=== PATIENT | male | born 1980 | race Caucasian/White ===

== ENCOUNTER → 2018-03-10 09:00 | Outpatient (CLI) | payer OTHER, SELFPAY | PROVIDERS: Family Provider Family Medicine; PCP Family Medicine | DX: Z23 Encounter for immunization (principal) | CPT/HCPCS: 90471; 90686 ==

== ENCOUNTER → 2019-04-06 15:44 | Outpatient (CLI) | payer OTHER, SELFPAY | PROVIDERS: PCP Family Medicine | DX: Z23 Encounter for immunization (principal) | CPT/HCPCS: 90471; 90686 ==

== ENCOUNTER 2019-05-22 02:54 | Inpatient (IN) | payer OTHER, SELFPAY ==
[2019-05-22] VITALS (19 sets, daily range): BP systolic 115–148; BP diastolic 54–101; PULSE 69–108; RESP 11–18; TEMP 36.4–37.1; O2SAT 95–100; BMI 24.3
--- NOTE | 2019-05-22 | PATH_ITS ---
[facility] Accession Number: [id number] . 01 Material submitted: . colon - CECUM . 01 Clinical history: . STOMACH PAIN . 02 Diagnosis: Cecum, Resection: Acute appendicitis with serositis. Short segment of terminal ileum with lymphoid hyperplasia. Segment of cecum with serositis; please see comment. Three benign lymph nodes. No evidence of neoplasm. [facility] 05/29/2019 1658 Local . 02 Comment: The overall findings are compatible with the clinical/operative impression of volvulus. The findings in this case were discussed between Dr. Baptiste and Dr. Dupree on 05/29/2019 at 3:20 p.m. . As part of routine quality assurance coordinator, Dr. Baca has reviewed this case and agrees with the interpretation above. . 02 Electronically signed: . Mitesh Dupree MD, PhD, Pathologist NPI- [id number] . 01 Gross description: . Received in formalin, labeled cecum, is a segment of colon which includes the terminal ileum (length-2.9 cm, proximal diameter-2.3 cm), ileocecal valve, cecum and ascending colon (length-15.5 cm, distal diameter-5.0 cm) with attached appendix (length-7.5 cm, diameter-7.7 cm) and attached adipose tissue (up to 5.0 cm in depth). The resection margins are received stapled. The serosa is milton, smooth and shiny. The terminal ileum mucosa is milton, focally firm and bosselated. The cecal mucosa is milton, smooth and predominantly flat. The wall is thin and semi-translucent. The remaining mucosa is milton with normal folds. The appendix is unremarkable. No nodules, masses or lesions are identified. Multiple possible lymph nodes (0.1 cm-0.3 cm) are identified. The resection margins are inked black. Section code: (A1, A2) proximal resection margin, longitudinal resources representative; (A3) distal resection margin, longitudinal resources representative; (A4) appendix, resources representative; (A5-A7) resources representative serial sections beginning from the cecum and submitted proximal to distal; (A8) multiple intact lymph nodes; (A9) ileocecal valve, resources representative perpendicular sections. ([id number]) /MRV 05/24/2019 1146 Local . 02 Pathologist provided ICD-10: K56.2, K35.80 . 02 CPT . 129162 Performed at: 01 [facility] [address] [facility], [place], [place] [id number] MD Michael Noguera MD Phone: [phone] Performed at: 02 [facility] [address] [place], [place] [id number] MD Mckenna Baca MD Phone: [phone]
--- NOTE | 2019-05-22 02:58 | DI.CT.S_ITS ---
PROCEDURE: CT ABDOMEN PELVIS W CON INDICATIONS: abdominal pain, Nausea, vomiting TECHNIQUE: After the administration of intravenous contrast, 5 mm thick sections acquired from the diaphragm to the symphysis. 5 mm coronal and sagittal reformats were acquired. For radiation dose reduction, the following was used: automated exposure control, adjustment of mA and/or kV according to patient size. COMPARISON: None. FINDINGS: Image quality: Excellent. ABDOMEN: Lung bases: Lung bases are clear. Heart size is normal. Solid organs: Liver is normal in size and enhancement. Gallbladder is normal. Biliary system is non dilated. Pancreas enhances normally. Spleen is normal in size and enhancement. No adrenal nodules. Kidneys demonstrate normal size and enhancement, without hydronephrosis. Peritoneum and bowel: There is congenital variant anatomy of bowel orientation/malrotation with the small bowel noted predominantly within the right abdomen and the colon within the left side. A prominent, enlarged cecum is noted predominantly in the mid and upper midline abdomen, containing a large amount of fecal material. The ileocecal valve and distal ileum appear decompressed as well as the adjacent loop of ascending colon. The distal colon is decompressed. No significant bowel wall thickening or edema. There is fecalization of the distal ileum which is consistent with delayed transit. Remaining small bowel loops demonstrate normal wall thickness and caliber. No free fluid or air. Visualized appendix appears within normal limits. Nodes and vessels: No retroperitoneal or mesenteric adenopathy by size criteria. Aorta and inferior vena cava are normal in size. Miscellaneous: No ventral hernias. PELVIS: Genitourinary: Bladder wall thickness is normal. Miscellaneous: No inguinal hernias or adenopathy. Bones: No suspicious bony lesions. No vertebral body compression fractures. 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 There is no associated wall thickening or significant edema. The terminal ileum and adjacent ascending colon appear decompressed with minimal wall thickening that may be related to decompressed state. The remaining colon appear decompressed. There is fecalization of the distal small bowel likely related to delayed transit. No evidence for small bowel obstruction. Findings may be related to a cecal bascule without lilli volvulus. No twisting of the mesenteric vessels identified. Early proximal large bowel obstruction with transition point near the proximal ascending colon is not completely excluded. Surgical consultation was already obtained as preliminary findings were discussed with Dr. Baptiste by the overnight radiologist at 0354 hours. No significant discrepancy with the warehouse worker 2nd shift radiology preliminary report. Dictated by: Cristian Lawson M.D. on 05/22/2019 at 9:21 Approved by: Cristian Lawson M.D. on 05/22/2019 at 10:24
[2019-05-22 03:13] LABS: Add Manual Diff / Slide Review NO; Basophils Absolute Auto 0 /uL (0-100); Basophils Percent Auto 0.3 % (0-2); Eosinophils Absolute Auto 100 /uL (0-450); Eosinophils Percent Auto 0.6 % (2-4); Hematocrit 45.1 % (41-53); Hemoglobin 15.6 g/dL (13.5-17.5); Lymphocytes Absolute Auto 2500 /uL (1100-4500); Lymphocytes Percent Auto 19.8 % (25-40); Mean Corpuscular HGB Conc 34.5 % (30-36); Mean Corpuscular Hemoglobin 29.6 PG (26-34); Mean Corpuscular Volume 85.8 fL (80-100); Monocytes Absolute Auto 600 /uL (0-900); Monocytes Percent Auto 5.1 % (3-14); Neutrophils Absolute Auto 9400 /uL (1500-7000); Neutrophils Percent Auto 74.2 % (50-75); Platelet Count 287 X10^3/uL (150-400); Red Blood Cell Count 5.26 X10^6/uL (4.5-5.9); Red Cell Distribution Width 13.1 % (11.6-14.8); White Blood Cell Count 12.7 X10^3/uL (4.5-11.0)
[2019-05-22 03:22] LABS: Alanine Aminotransferase 19 IU/L (<50); Albumin 5.1 g/dL (3.5-5.0); Albumin Globulin Ratio 1.5 (1.0-2.8); Alkaline Phosphatase 66 U/L (38-126); Aspartate Aminotransferase 26 IU/L (17-59); BUN Creatinine Ratio 11.1 (6-22); Bilirubin Total 0.9 mg/dL (0.2-1.3); Blood Urea Nitrogen 10 mg/dL (9-20); Calcium 10.2 mg/dL (8.4-10.2); Carbon Dioxide 30 mmol/L (22-32); Chloride 101 mmol/L (98-107); Estimated Glomerular Filt Rate > 60.0 mL/min (>60); Globulin 3.3 g/dL (1.7-4.1); Glucose 103 mg/dL (70-100); HEMOLYSIS < 15 (0-50); Lactate (Lactic Acid) 0.8 mmol/L (0.7-2.1); Lipase 37 U/L (23-300); Sodium 141 mmol/L (137-145); Total Protein 8.4 g/dL (6.3-8.2)
[2019-05-22] MEDS: DEXTROSE 5%-LACTATED RINGERS 1,000 ML 150 ML IV ×3 (03:37→22:31)
--- NOTE | 2019-05-22 04:03 | P.HP_ITS ---
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 He has been vomiting much of the night. No blood. Had a normal bowel movement yesterday. Had symptoms of a bowel obstruction when he was a youngster that resolved spontaneously. Pain is crampy in nature and quite intense to the point of stopping him. Is worse with standing. 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) Right humeral fracture (Resolved) Umbilical hernia without mention of obstruction or gangrene (Resolved) Surgical History (Updated 05/22/19 @ 04:06 by Martínez Baptiste MD) H/O umbilical hernia repair (Acute) Family & Social History Safety & Behavioral: Feels Safe in Current Yes Environment Tobacco & Substance use: Smoking Status Never smoker alcohol intake current alcohol intake frequency 0-2 drinks per day Substance Use Type does not use Meds Home Medications and Allergies Home Medications Medication Instructions Recorded Confirmed Type dextroamphetamine-amphetamine ER 30 cap PO QDAY #30 cap 04/09/19 04/27/19 Rx 30 mg 24hr capsule,extend release Allergies Allergy/AdvReac Type Severity Reaction Status Date / Time No Known Allergies Allergy Uncoded 04/27/19 15:03 Review of Systems Review of Systems Narrative: No breathing issues cough or cold. No chest pain or heart problems. No black or bloody bowel movements. No seizures or blackouts. He is treated with Adderall for adult attention deficit disorder. Exam Vital Signs (past 8 hours): - 05/22/19 03:05 Temperature 98.5 F Pulse Rate 92 H Respiratory Rate 16 Blood Pressure 138/101 H Pulse Oximetry 97 Oxygen Delivery Method Room Air Narrative Exam Narrative: Under signs noted. Cooperative. Eyes are nonicteric. Oral mucosa is pink moist no open lesions. Teeth are intact. Neck is without mass or nodes. Lungs are clear to auscultation no rales or rhonchi. Heart regular r ate and rhythm without murmur gallop. Abdomen is flat and soft. There is localized tenderness in the left upper abdomen. Voluntary guarding. No hernias appreciated. Patient is alert oriented x3. Speech rate and content are appropriate. Affect is appropriate. Objective Imaging CT scan - abdomen: My impression: Normal caliber small bowel and colon except for in absence of gas in the right abdomen and the cecum appears to be located in the left upper abdomen with marked distention and stool consistent with a bowel obstruction most likely secondary to volvulus of the cecum. No free air. Remainder the abdomen fairly unremarkable. Despite the administration of IV contrast there does not seem to be much perfused. Radiologist's impression: Same as above Labs Result Diagrams: 05/22/19 03:00 05/22/19 03:00 Labs: Laboratory Results - last 24 hr 05/22/19 05/22/19 05/22/19 03:00 03:00 03:00 WBC 12.7 H RBC 5.26 Hgb 15.6 Hct 45.1 MCV 85.8 MCH 29.6 MCHC 34.5 RDW 13.1 Plt Count 287 Neut % (Auto) 74.2 Lymph % (Auto) 19.8 L [place] % (Auto) 5.1 Eos % (Auto) 0.6 L Baso % (Auto) 0.3 Neut # (Auto) 9400 H Lymph # (Auto) 2500 [place] # (Auto) 600 Eos # (Auto) 100 Baso # (Auto) 0 Sodium 141 Potassium 4.0 Chloride 101 Carbon Dioxide 30 BUN 10 Creatinine 0.90 Estimated GFR > 60.0 BUN/Creatinine Ratio 11.1 Glucose 103 H Lactate 0.8 Calcium 10.2 Total Bilirubin 0.9 AST 26 ALT 19 Alkaline Phosphatase 66 Total Protein 8.4 H Albumin 5.1 H Globulin 3.3 Albumin/Globulin Ratio 1.5 Lipase 37 Assessment & Plan Assessment & Plan narrative: Patient with cecal volvulus. Recommend exploration resection. I have discussed this with the patient including risks of bleeding, infection, anastomotic breakdown in hernia. He appears to understand and wishes to proceed. Possibility of an ileostomy discussed with him as well.
--- NOTE | 2019-05-22 04:04 | ED_ITS ---
HPI - Abdominal Pain <[facility] Last Filed: 05/22/19 05:10> General Chief Complaint: Abdominal Pain Stated Complaint: stomach pain Time Seen by Provider: 05/22/19 02:56 Source: patient Mode of arrival: Ambulatory Limitations: no limitations History of Present Illness HPI narrative: This is a 38-year-old ,nonsmoker, male with chief complain of left upper quadrant pain for last 10 hours with associated symptoms of nausea and vomiting x2. Patient has history of umbilical hernia repair. Had similar symptoms when he was 8 or 9 and was admitted to hospital. Pain worsens with standing up and ambulation. Reports increasing pain with light touch. Last bowel movement as usual yesterday without blood. Reports current pain as 2/10 at rest but at times pain increases as severe. Denies urinary symptoms. Related Data Previous Rx's Medication Instructions Recorded dextroamphetamine-amphetamine ER 30 cap PO QDAY #30 cap 04/09/19 30 mg 24hr capsule,extend release ibuprofen 600 mg PO Q6H PRN #20 tab 05/25/19 oxycodone See Rx Instructions .ROUTE 05/25/19 .COMPLEX PRN #25 tab Allergies Allergy/AdvReac Type Severity Reaction Status Date / Time No Known Allergies Allergy Verified 05/22/19 04:35 Review of Systems <LEILA Murray Last Filed: 05/22/19 05:10> Review of Systems Narrative: General: Denies fever, chills, fatigue, malaise, sweats. HEENT: Denies sinus pain, ear pain, sore throat, difficulty swallowing, dizziness. Respiratory: Denies dyspnea, cough, wheezing, hemoptysis, sputum. Cardiovascular: Denies chest pain, palpitations, orthopnea, edema. Gastrointestinal: See HPI : Denies dysuria, frequency, incontinence, hematuria, urinary retention. Musculoskeletal: Denies weakness, joint pain or bony pain. Skin: Denies rash, skin lesions, or other. Neurologic: Denies weakness, headache, numbness, change in speech, confusion, seizures, incoordination. Psychiatric: No concerning psychosocial issues. 12-point review of systems is negative except for those stated above. 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 Head: Normal cephalic, atraumatic. No scalp or temporal tenderness, palpable mass or rash. EYES: Pupils are equal, round, and reactive to light and accommodation. Extraocular muscles are intact bilaterally. There is no subconjunctival hemorrhage, exudate and sclera non-icteric. Neck: Trachea in midline. No JVD, masses or thyroid megaly. Supple, non- tender and no meningeal signs. CARDIAC: No peripheral edema, cyanosis or pallor. Capillary refill is less than 2 seconds. RESPIRATORY: No cough, wheezes, stridor, respiratory distress, increase work of breathing, or accessary muscle used. ABD: Abdomen tender to light palpation in LUQ and hypoactive bowel sounds and non-distended. No guarding or rebound tenderness to palpate. There is no palpable masses or organomegaly. EXT: Full painless ROM of all extremities with no loss of sensation, strength, effusion or edema. SKIN: Warm, dry, normal color for patient. No erythema, lesions or rash over visible areas. BACK: Nontender without deformity or crepitance. No flank tenderness. NEUROLOGICAL: Alert and oriented to place, time and person. Sensation and motor function intact bilaterally. No facial droops, dysphasia. PSYCHIATRIC: Good judgement and reason, without hallucinations, abnormal affect or abnormal behaviors during the examination. Patient is not suicidal. Initial Vital Signs Initial Vital Signs: Vital Signs Temperature 98.5 F 05/22/19 03:05 Pulse Rate 92 H 05/22/19 03:05 Respiratory Rate 16 05/22/19 03:05 Blood Pressure 138/101 H 05/22/19 03:05 Pulse Oximetry 97 05/22/19 03:05 <Francisco Goodwin DO - Last Filed: 05/26/19 11:46> Initial Vital Signs Initial Vital Signs: Vital Signs Temperature 98.5 F 05/22/19 03:05 Pulse Rate 92 H 05/22/19 03:05 Respiratory Rate 16 05/22/19 03:05 Blood Pressure 138/101 H 05/22/19 03:05 Pulse Oximetry 97 05/22/19 03:05 Course <LEILA Murray - Last Filed: 05/22/19 05:10> Course Course Narrative: Critical findings of large bowel obstruction in cecum w/o obstruction from Radiologist. Dr. Baptiste discussing with the radiologist about the findings. Decision to Admit Date: 05/22/19 Decision to Admit time: 03:50 Orders Ordered: Acetaminophen (Tylenol) 650 mg PO Q6HR PRN PRN Reason: Fever/Mild Pain (1-3) Last Admin: 05/25/19 09:02 Dose: 650 mg Documented by: Admin: 05/23/19 16:27 Dose: 650 mg Documented by: MARY Enoxaparin Sodium (Lovenox) 40 mg SUBCUT DAILY [facility] Last Admin: 05/26/19 09:23 Dose: Not Given Documented by: Admin: 05/25/19 14:07 Dose: 40 mg Documented by: Admin: 05/24/19 13:09 Dose: 40 mg Documented by: Admin: 05/23/19 09:57 Dose: 40 mg Documented by: Admin: 05/22/19 14:44 Dose: Not Given Documented by: DHAVAL Gabapentin (Neurontin) 300 mg PO BID [facility] Last Admin: 05/26/19 08:06 Dose: 300 mg Documented by: Admin: 05/25/19 21:23 Dose: 300 mg Documented by: Admin: 05/25/19 09:02 Dose: 300 mg Documented by: Admin: 05/24/19 21:10 Dose: 300 mg Documented by: Admin: 05/24/19 10:13 Dose: 300 mg Documented by: Admin: 05/23/19 20:58 Dose: 300 mg Documented by: Admin: 05/23/19 09:58 Dose: 300 mg Documented by: Admin: 05/22/19 21:57 Dose: 300 mg Documented by: Admin: 05/22/19 10:22 Dose: 300 mg Documented by: DHAVAL Ketorolac Tromethamine (Toradol) 10 mg PO Q6HR [facility] Stop: 05/30/19 12:52 Last Admin: 05/26/19 06:18 Dose: 10 mg Documented by: Admin: 05/26/19 01:05 Dose: Not Given Documented by: Admin: 05/25/19 17:30 Dose: 10 mg Documented by: MARY Naloxone HCl (Narcan) 0.2 mg IV Q2MIN PRN PRN Reason: Opiate Reversal Melatonin 5mg Fast (Dissolve) 5 each PO BEDTIME [facility] Last Admin: 05/25/19 21:23 Dose: 5 each Documented by: Admin: 05/24/19 21:10 Dose: 5 each Documented by: Admin: 05/23/19 20:57 Dose: 5 each Documented by: Admin: 05/22/19 19:07 Dose: 5 each Documented by: JONNA Dextroamphetamine Salts (Adderall) Er 30mg 1 each PO DAILY [facility] Last Admin: 05/26/19 09:23 Dose: Not Given Documented by: Admin: 05/25/19 10:13 Dose: Not Given Documented by: Admin: 05/24/19 13:19 Dose: 1 each Documented by: RUBÉN Ondansetron HCl (Zofran) 4 mg IV Q6HR PRN PRN Reason: Nausea And Vomiting Last Admin: 05/25/19 09:01 Dose: 4 mg Documented by: Admin: 05/24/19 10:23 Dose: 4 mg Documented by: Admin: 05/24/19 03:43 Dose: 4 mg Documented by: Admin: 05/22/19 17:36 Dose: 4 mg Documented by: JONNA Oxycodone HCl (Percolone) 10 mg PO Q4HR PRN PRN Reason: Pain, Moderate (4-6) Last Admin: 05/26/19 08:06 Dose: 10 mg Documented by: Admin: 05/24/19 21:11 Dose: 10 mg Documented by: MARY Oxycodone HCl (Percolone) 15 mg PO Q4HR PRN PRN Reason: Pain, Severe (7-10) Last Admin: 05/25/19 22:23 Dose: 15 mg Documented by: Admin: 05/25/19 17:59 Dose: 15 mg Documented by: Admin: 05/25/19 14:06 Dose: 15 mg Documented by: Admin: 05/25/19 10:03 Dose: 15 mg Documented by: Admin: 05/25/19 05:18 Dose: 15 mg Documented by: ROSE Pantoprazole Sodium (Protonix) 40 mg PO 0700 [facility] Last Admin: 05/26/19 06:18 Dose: 40 mg Documented by: Admin: 05/25/19 09:02 Dose: 40 mg Documented by: RUBÉN Discontinued Medications Acetaminophen (Tylenol) 650 mg PO NOW ONE Stop: 05/24/19 11:44 Last Admin: 05/24/19 13:11 Dose: 650 mg Documented by: RUBÉN Bisacodyl (Dulcolax) 10 mg [place] NOW ONE Stop: 05/24/19 09:52 Last Admin: 05/24/19 10:13 Dose: 10 mg Documented by: RUBÉN Bisacodyl (Dulcolax) 10 mg WI NOW ONE Stop: 05/25/19 12:52 Last Admin: 05/25/19 14:06 Dose: 10 mg Documented by: RUBÉN Bisacodyl (Dulcolax) 10 mg WI NOW ONE Stop: 05/26/19 08:59 Last Admin: 05/26/19 09:21 Dose: 10 mg Documented by: DHAVAL Hydromorphone HCl (Dilaudid) 0 mg IV Q5M PRN PRN Reason: Pain, Severe (7-10) Hydromorphone HCl (Dilaudid) 0 mg IV Q5M PRN PRN Reason: Pain, Moderate (4-6) Last Admin: 05/22/19 08:57 Dose: 0.5 mg Documented by: AUGUSTUS Hydromorphone HCl (Dilaudid) 0 mg IV Q5MIN PRN PRN Reason: Pain, Mild (1-3) Hydromorphone HCl (Dilaudid) 0.5 mg IV Q30MIN PRN PRN Reason: Pain, Severe (7-10) Last Admin: 05/24/19 03:39 Dose: 0.5 mg Documented by: Admin: 05/24/19 03:11 Dose: 0.5 mg Documented by: Admin: 05/24/19 02:06 Dose: 0.5 mg Documented by: Admin: 05/23/19 20:59 Dose: 0.5 mg Documented by: Admin: 05/22/19 16:55 Dose: 0.5 mg Documented by: Admin: 05/22/19 15:36 Dose: 0.5 mg Documented by: Admin: 05/22/19 13:23 Dose: 0.5 mg Documented by: DHAVAL Hydroxyzine HCl (Vistaril) 25 mg IM NOW PRN PRN Reason: Pain, Mild (1-3) Sodium Chloride (Normal Saline 0.9%) 1,000 mls @ 1,000 mls/hr IV BOLUS ONE Stop: 05/22/19 03:55 Last Admin: 05/22/19 05:08 Dose: Not Given Documented by: JAYNA Lactated Ringer's (Lactated Ringers) 1,000 mls @ 1,000 mls/hr IV BOLUS ONE Stop: 05/22/19 04:32 Last Infusion: 05/22/19 09:21 Dose: 0 mls/hr Documented by: Admin: 05/22/19 06:27 Dose: 1,000 mls/hr Documented by: Admin: 05/22/19 05:08 Dose: Not Given Documented by: JAYNA Dextrose/Lactated Ringer's (Dextrose 5%-Lactated Ringers) 1,000 mls @ 80 mls/hr IV CONT [facility] Last Infusion: 05/25/19 09:00 Dose: 0 mls/hr Documented by: Admin: 05/25/19 01:43 Dose: 80 mls/hr Documented by: Infusion: 05/25/19 01:41 Dose: 80 mls/hr Documented by: Admin: 05/24/19 13:11 Dose: 80 mls/hr Documented by: Infusion: 05/24/19 13:11 Dose: 80 mls/hr Documented by: Admin: 05/24/19 00:55 Dose: 80 mls/hr Documented by: Infusion: 05/24/19 00:55 Dose: 80 mls/hr Documented by: Infusion: 05/23/19 12:58 Dose: 80 mls/hr Documented by: Admin: 05/23/19 12:40 Dose: 150 mls/hr Documented by: Infusion: 05/23/19 11:59 Dose: 150 mls/hr Documented by: Admin: 05/23/19 05:18 Dose: 150 mls/hr Documented by: Infusion: 05/23/19 05:12 Dose: 150 mls/hr Documented by: Admin: 05/22/19 22:31 Dose: 150 mls/hr Documented by: Infusion: 05/22/19 22:31 Dose: 150 mls/hr Documented by: Admin: 05/22/19 16:41 Dose: 150 mls/hr Documented by: Infusion: 05/22/19 10:17 Dose: 150 mls/hr Documented by: Infusion: 05/22/19 05:09 Dose: 150 mls/hr Documented by: Admin: 05/22/19 03:37 Dose: 150 mls/hr Documented by: JAYNA Piperacillin/Tazobactam/Dextrose (Zosyn) 3.375 gm in 50 mls @ 100 mls/hr IV INTRA-OP ONE Stop: 05/22/19 04:41 Last Infusion: 05/22/19 05:15 Dose: 0 mls/hr Documented by: Admin: 05/22/19 05:10 Dose: 100 mls/hr Documented by: ONDINA FENT 2MCG/ML BUPIV 0.125% EPI (Fentanyl/Bupiv/Ns 2mcg/Ml - 0.125%) 200 mcg in 100 mls @ 5 mls/hr EPIDURAL CONT [facility] Last Infusion: 05/22/19 10:22 Dose: 0 mls/hr Documented by: Infusion: 05/22/19 10:22 Dose: 10 mls/hr Documented by: Infusion: 05/22/19 09:46 Dose: 8 mls/hr Documented by: Admin: 05/22/19 08:41 Dose: 5 mls/hr Documented by: AKUNZE Acetaminophen (Ofirmev) 1,000 mg in 100 mls @ 400 mls/hr IV NOW ONE Stop: 05/22/19 06:30 Last Infusion: 05/22/19 06:19 Dose: 0 mls/hr Documented by: Admin: 05/22/19 06:09 Dose: 400 mls/hr Documented by: CARROBE FENT 2MCG/ML BUPIV 0.125% EPI (Fentanyl/Bupiv/Ns 2mcg/Ml - 0.125%) 200 mcg in 100 mls @ 10 mls/hr EPIDURAL CONT [facility] Last Infusion: 05/25/19 06:00 Dose: 0 mls/hr Documented by: Admin: 05/24/19 20:04 Dose: 10 mls/hr Documented by: Infusion: 05/24/19 10:58 Dose: 10 mls/hr Documented by: Admin: 05/24/19 00:58 Dose: 10 mls/hr Documented by: Infusion: 05/24/19 00:58 Dose: 10 mls/hr Documented by: Admin: 05/23/19 16:41 Dose: 10 mls/hr Documented by: Infusion: 05/23/19 15:57 Dose: 10 mls/hr Documented by: Admin: 05/23/19 05:57 Dose: 10 mls/hr Documented by: Infusion: 05/23/19 05:24 Dose: 10 mls/hr Documented by: Infusion: 05/22/19 23:17 Dose: 10 mls/hr Documented by: Infusion: 05/22/19 22:50 Dose: 8 mls/hr Documented by: Infusion: 05/22/19 17:30 Dose: 5 mls/hr Documented by: Admin: 05/22/19 16:38 Dose: 10 mls/hr Documented by: Infusion: 05/22/19 16:38 Dose: 10 mls/hr Documented by: Admin: 05/22/19 10:21 Dose: 10 mls/hr Documented by: DHAVAL Meperidine HCl (Demerol) 12.5 mg IV NOW PRN PRN Reason: Mild pain or shivering Pantoprazole Sodium (Protonix) 40 mg IV NOW ONE Stop: 05/22/19 17:51 Last Admin: 05/22/19 18:03 Dose: 40 mg Documented by: JONNA Pantoprazole Sodium (Protonix) 40 mg IV DAILY [facility] Last Admin: 05/24/19 10:13 Dose: 40 mg Documented by: Admin: 05/23/19 09:58 Dose: 40 mg Documented by: DHAVAL Sodium Chloride (Normal Saline 0.9% Flush) 10 ml IV PRN PRN PRN Reason: Flush Sodium Chloride (Normal Saline 0.9% Flush) 10 ml IV BID [facility] Last Admin: 05/26/19 10:07 Dose: Not Given Documented by: Admin: 05/25/19 21:22 Dose: Not Given Documented by: Admin: 05/25/19 09:00 Dose: 10 ml Documented by: Admin: 05/24/19 21:12 Dose: Not Given Documented by: Admin: 05/24/19 10:13 Dose: 10 ml Documented by: Admin: 05/23/19 20:55 Dose: Not Given Documented by: Admin: 05/23/19 09:57 Dose: 10 ml Documented by: DHAVAL Vital Signs Vital signs: Vital Signs - 8 hr 05/22/19 03:05 Temperature 98.5 F Pulse Rate 92 H Respiratory Rate 16 Blood Pressure 138/101 H Pulse Oximetry 97 <Francisco Goodwin, - Last Filed: 05/26/19 11:46> Orders Ordered: Acetaminophen (Tylenol) 650 mg PO Q6HR PRN PRN Reason: Fever/Mild Pain (1-3) Last Admin: 05/25/19 09:02 Dose: 650 mg Documented by: Admin: 05/23/19 16:27 Dose: 650 mg Documented by: MARY Enoxaparin Sodium (Lovenox) 40 mg SUBCUT DAILY [facility] Last Admin: 05/26/19 09:23 Dose: Not Given Documented by: Admin: 05/25/19 14:07 Dose: 40 mg Documented by: Admin: 05/24/19 13:09 Dose: 40 mg Documented by: Admin: 05/23/19 09:57 Dose: 40 mg Documented by: Admin: 05/22/19 14:44 Dose: Not Given Documented by: DHAVAL Gabapentin (Neurontin) 300 mg PO BID [facility] Last Admin: 05/26/19 08:06 Dose: 300 mg Documented by: Admin: 05/25/19 21:23 Dose: 300 mg Documented by: Admin: 05/25/19 09:02 Dose: 300 mg Documented by: Admin: 05/24/19 21:10 Dose: 300 mg Documented by: Admin: 05/24/19 10:13 Dose: 300 mg Documented by: Admin: 05/23/19 20:58 Dose: 300 mg Documented by: Admin: 05/23/19 09:58 Dose: 300 mg Documented by: Admin: 05/22/19 21:57 Dose: 300 mg Documented by: Admin: 05/22/19 10:22 Dose: 300 mg Documented by: DHAVAL Ketorolac Tromethamine (Toradol) 10 mg PO Q6HR [facility] Stop: 05/30/19 12:52 Last Admin: 05/26/19 06:18 Dose: 10 mg Documented by: Admin: 05/26/19 01:05 Dose: Not Given Documented by: Admin: 05/25/19 17:30 Dose: 10 mg Documented by: MARY Naloxone HCl (Narcan) 0.2 mg IV Q2MIN PRN PRN Reason: Opiate Reversal Melatonin 5mg Fast (Dissolve) 5 each PO BEDTIME [facility] Last Admin: 05/25/19 21:23 Dose: 5 each Documented by: Admin: 05/24/19 21:10 Dose: 5 each Documented by: Admin: 05/23/19 20:57 Dose: 5 each Documented by: Admin: 05/22/19 19:07 Dose: 5 each Documented by: JONNA Dextroamphetamine Salts (Adderall) Er 30mg 1 each PO DAILY [facility] Last Admin: 05/26/19 09:23 Dose: Not Given Documented by: Admin: 05/25/19 10:13 Dose: Not Given Documented by: Admin: 05/24/19 13:19 Dose: 1 each Documented by: RUBÉN Ondansetron HCl (Zofran) 4 mg IV Q6HR PRN PRN Reason: Nausea And Vomiting Last Admin: 05/25/19 09:01 Dose: 4 mg Documented by: Admin: 05/24/19 10:23 Dose: 4 mg Documented by: Admin: 05/24/19 03:43 Dose: 4 mg Documented by: Admin: 05/22/19 17:36 Dose: 4 mg Documented by: JONNA Oxycodone HCl (Percolone) 10 mg PO Q4HR PRN PRN Reason: Pain, Moderate (4-6) Last Admin: 05/26/19 08:06 Dose: 10 mg Documented by: Admin: 05/24/19 21:11 Dose: 10 mg Documented by: MARY Oxycodone HCl (Percolone) 15 mg PO Q4HR PRN PRN Reason: Pain, Severe (7-10) Last Admin: 05/25/19 22:23 Dose: 15 mg Documented by: Admin: 05/25/19 17:59 Dose: 15 mg Documented by: Admin: 05/25/19 14:06 Dose: 15 mg Documented by: Admin: 05/25/19 10:03 Dose: 15 mg Documented by: Admin: 05/25/19 05:18 Dose: 15 mg Documented by: ROSE Pantoprazole Sodium (Protonix) 40 mg PO 0700 [facility] Last Admin: 05/26/19 06:18 Dose: 40 mg Documented by: Admin: 05/25/19 09:02 Dose: 40 mg Documented by: RUBÉN Discontinued Medications Acetaminophen (Tylenol) 650 mg PO NOW ONE Stop: 05/24/19 11:44 Last Admin: 05/24/19 13:11 Dose: 650 mg Documented by: RUBÉN Bisacodyl (Dulcolax) 10 mg WI NOW ONE Stop: 05/24/19 09:52 Last Admin: 05/24/19 10:13 Dose: 10 mg Documented by: RUBÉN Bisacodyl (Dulcolax) 10 mg WI NOW ONE Stop: 05/25/19 12:52 Last Admin: 05/25/19 14:06 Dose: 10 mg Documented by: RUBÉN Bisacodyl (Dulcolax) 10 mg WI NOW ONE Stop: 05/26/19 08:59 Last Admin: 05/26/19 09:21 Dose: 10 mg Documented by: DAHVAL Hydromorphone HCl (Dilaudid) 0 mg IV Q5M PRN PRN Reason: Pain, Severe (7-10) Hydromorphone HCl (Dilaudid) 0 mg IV Q5M PRN PRN Reason: Pain, Moderate (4-6) Last Admin: 05/22/19 08:57 Dose: 0.5 mg Documented by: LESLIEUNBRITANY Hydromorphone HCl (Dilaudid) 0 mg IV Q5MIN PRN PRN Reason: Pain, Mild (1-3) Hydromorphone HCl (Dilaudid) 0.5 mg IV Q30MIN PRN PRN Reason: Pain, Severe (7-10) Last Admin: 05/24/19 03:39 Dose: 0.5 mg Documented by: Admin: 05/24/19 03:11 Dose: 0.5 mg Documented by: Admin: 05/24/19 02:06 Dose: 0.5 mg Documented by: Admin: 05/23/19 20:59 Dose: 0.5 mg Documented by: Admin: 05/22/19 16:55 Dose: 0.5 mg Documented by: Admin: 05/22/19 15:36 Dose: 0.5 mg Documented by: Admin: 05/22/19 13:23 Dose: 0.5 mg Documented by: DHAVAL Hydroxyzine HCl (Vistaril) 25 mg IM NOW PRN PRN Reason: Pain, Mild (1-3) Sodium Chloride (Normal Saline 0.9%) 1,000 mls @ 1,000 mls/hr IV BOLUS ONE Stop: 05/22/19 03:55 Last Admin: 05/22/19 05:08 Dose: Not Given Documented by: KWOYSKI Lactated Ringer's (Lactated Ringers) 1,000 mls @ 1,000 mls/hr IV BOLUS ONE Stop: 05/22/19 04:32 Last Infusion: 05/22/19 09:21 Dose: 0 mls/hr Documented by: Admin: 05/22/19 06:27 Dose: 1,000 mls/hr Documented by: Admin: 05/22/19 05:08 Dose: Not Given Documented by: JAYNA Dextrose/Lactated Ringer's (Dextrose 5%-Lactated Ringers) 1,000 mls @ 80 mls/hr IV CONT [facility] Last Infusion: 05/25/19 09:00 Dose: 0 mls/hr Documented by: Admin: 05/25/19 01:43 Dose: 80 mls/hr Documented by: Infusion: 05/25/19 01:41 Dose: 80 mls/hr Documented by: Admin: 05/24/19 13:11 Dose: 80 mls/hr Documented by: Infusion: 05/24/19 13:11 Dose: 80 mls/hr Documented by: Admin: 05/24/19 00:55 Dose: 80 mls/hr Documented by: Infusion: 05/24/19 00:55 Dose: 80 mls/hr Documented by: Infusion: 05/23/19 12:58 Dose: 80 mls/hr Documented by: Admin: 05/23/19 12:40 Dose: 150 mls/hr Documented by: Infusion: 05/23/19 11:59 Dose: 150 mls/hr Documented by: Admin: 05/23/19 05:18 Dose: 150 mls/hr Documented by: Infusion: 05/23/19 05:12 Dose: 150 mls/hr Documented by: Admin: 05/22/19 22:31 Dose: 150 mls/hr Documented by: Infusion: 05/22/19 22:31 Dose: 150 mls/hr Documented by: Admin: 05/22/19 16:41 Dose: 150 mls/hr Documented by: Infusion: 05/22/19 10:17 Dose: 150 mls/hr Documented by: Infusion: 05/22/19 05:09 Dose: 150 mls/hr Documented by: Admin: 05/22/19 03:37 Dose: 150 mls/hr Documented by: JAYNA Piperacillin/Tazobactam/Dextrose (Zosyn) 3.375 gm in 50 mls @ 100 mls/hr IV INTRA-OP ONE Stop: 05/22/19 04:41 Last Infusion: 05/22/19 05:15 Dose: 0 mls/hr Documented by: Admin: 05/22/19 05:10 Dose: 100 mls/hr Documented by: ONDINA FENT 2MCG/ML BUPIV 0.125% EPI (Fentanyl/Bupiv/Ns 2mcg/Ml - 0.125%) 200 mcg in 100 mls @ 5 mls/hr EPIDURAL CONT [facility] Last Infusion: 05/22/19 10:22 Dose: 0 mls/hr Documented by: Infusion: 05/22/19 10:22 Dose: 10 mls/hr Documented by: Infusion: 05/22/19 09:46 Dose: 8 mls/hr Documented by: Admin: 05/22/19 08:41 Dose: 5 mls/hr Documented by: AKUNZE Acetaminophen (Ofirmev) 1,000 mg in 100 mls @ 400 mls/hr IV NOW ONE Stop: 05/22/19 06:30 Last Infusion: 05/22/19 06:19 Dose: 0 mls/hr Documented by: Admin: 05/22/19 06:09 Dose: 400 mls/hr Documented by: ONDINA FENT 2MCG/ML BUPIV 0.125% EPI (Fentanyl/Bupiv/Ns 2mcg/Ml - 0.125%) 200 mcg in 100 mls @ 10 mls/hr EPIDURAL CONT [facility] Last Infusion: 05/25/19 06:00 Dose: 0 mls/hr Documented by: Admin: 05/24/19 20:04 Dose: 10 mls/hr Documented by: Infusion: 05/24/19 10:58 Dose: 10 mls/hr Documented by: Admin: 05/24/19 00:58 Dose: 10 mls/hr Documented by: Infusion: 05/24/19 00:58 Dose: 10 mls/hr Documented by: Admin: 05/23/19 16:41 Dose: 10 mls/hr Documented by: Infusion: 05/23/19 15:57 Dose: 10 mls/hr Documented by: Admin: 05/23/19 05:57 Dose: 10 mls/hr Documented by: Infusion: 05/23/19 05:24 Dose: 10 mls/hr Documented by: Infusion: 05/22/19 23:17 Dose: 10 mls/hr Documented by: Infusion: 05/22/19 22:50 Dose: 8 mls/hr Documented by: Infusion: 05/22/19 17:30 Dose: 5 mls/hr Documented by: Admin: 05/22/19 16:38 Dose: 10 mls/hr Documented by: Infusion: 05/22/19 16:38 Dose: 10 mls/hr Documented by: Admin: 05/22/19 10:21 Dose: 10 mls/hr Documented by: DHAVAL Meperidine HCl (Demerol) 12.5 mg IV NOW PRN PRN Reason: Mild pain or shivering Pantoprazole Sodium (Protonix) 40 mg IV NOW ONE Stop: 05/22/19 17:51 Last Admin: 05/22/19 18:03 Dose: 40 mg Documented by: JONNA Pantoprazole Sodium (Protonix) 40 mg IV DAILY [facility] Last Admin: 05/24/19 10:13 Dose: 40 mg Documented by: Admin: 05/23/19 09:58 Dose: 40 mg Documented by: DHAVAL Sodium Chloride (Normal Saline 0.9% Flush) 10 ml IV PRN PRN PRN Reason: Flush Sodium Chloride (Normal Saline 0.9% Flush) 10 ml IV BID [facility] Last Admin: 05/26/19 10:07 Dose: Not Given Documented by: Admin: 05/25/19 21:22 Dose: Not Given Documented by: Admin: 05/25/19 09:00 Dose: 10 ml Documented by: Admin: 05/24/19 21:12 Dose: Not Given Documented by: Admin: 05/24/19 10:13 Dose: 10 ml Documented by: Admin: 05/23/19 20:55 Dose: Not Given Documented by: Admin: 05/23/19 09:57 Dose: 10 ml Documented by: HDAVAL Vital Signs Vital signs: Vital Signs - 8 hr 05/22/19 03:05 Temperature 98.5 F Pulse Rate 92 H Respiratory Rate 16 Blood Pressure 138/101 H Pulse Oximetry 97 MDM - Abdominal Pain <Fermin LEILA Mcdonnell - Last Filed: 05/22/19 05:10> Differential Diagnosis Differential diagnosis: Likely small bowel obstruction and other (Large bowel obstruction, Volvurus, hernia) Medical Records Attestation: I reviewed the patient's medical records. Lab Data Attestation: I reviewed the patient's lab results. Result diagrams: 05/25/19 04:44 05/23/19 09:55 Labs: Lab Results 05/22/19 05/22/19 05/22/19 Range/Units 03:00 03:00 03:00 WBC 12.7 H (4.5-11.0) X10^3/uL RBC 5.26 (4.5-5.9) X10^6/uL Hgb 15.6 (13.5-17.5) g/dL Hct 45.1 (41-53) % MCV 85.8 (80-100) fL MCH 29.6 (26-34) PG MCHC 34.5 (30-36) % RDW 13.1 (11.6-14.8) % Plt Count 287 (150-400) X10^3/uL Neut % (Auto) 74.2 (50-75) % Lymph % (Auto) 19.8 L (25-40) % [place]arro % (Auto) 5.1 (3-14) % Eos % (Auto) 0.6 L (2-4) % Baso % (Auto) 0.3 (0-2) % Neut # (Auto) 9400 H (1975-3086) /uL Lymph # (Auto) 2500 (0658-9396) /uL Navarro # (Auto) 600 (0-900) /uL Eos # (Auto) 100 (0-450) /uL Baso # (Auto) 0 (0-100) /uL Sodium 141 (137-145) mmol/L Potassium 4.0 (3.4-5.1) mmol/L Chloride 101 (98-107) mmol/L Carbon Dioxide 30 (22-32) mmol/L BUN 10 (9-20) mg/dL Creatinine 0.90 (0.66-1.25) mg/dL Estimated GFR > 60.0 (>60) mL/min BUN/Creatinine Ratio 11.1 (6-22) Glucose 103 H (70-100) mg/dL Lactate 0.8 (0.7-2.1) mmol/L Calcium 10.2 (8.4-10.2) mg/dL Total Bilirubin 0.9 (0.2-1.3) mg/dL AST 26 (17-59) IU/L ALT 19 (<50) IU/L Alkaline Phosphatase 66 (38-126) U/L Total Protein 8.4 H (6.3-8.2) g/dL Albumin 5.1 H (3.5-5.0) g/dL Globulin 3.3 (1.7-4.1) g/dL Albumin/Globulin Ratio 1.5 (1.0-2.8) Lipase 37 (23-300) U/L Imaging Data CT scan - abdomen: Radiologist's impression: Dr. Basilio Lynn, radiologist called for concerns for acute large bowel obstruction with proximal transition point possibly secondary to volvulus. No evidence for perforation. MDM Narrative Medical decision making narrative: CT of abdomen/pelvis indicates concerning for acute large bowel obstruction in cecum area possibly secondary to volvulus. Dr. Baptiste has been consulted and currently in emergency room evaluating the patient, Dr. Goodwin and discussed surgical intervention. Mildly elevated white count without left shift. Patient declined anti nausea or pain medications at this time. Dr. Goodwin agrees with surgical intervention at and Dr. Baptiste kindly accepted the patient's care. <Francisco Goodwin, DO - Last Filed: 05/26/19 11:46> Lab Data Labs: Lab Results 05/22/19 05/22/19 05/22/19 Range/Units 03:00 03:00 03:00 WBC 12.7 H (4.5-11.0) X10^3/uL RBC 5.26 (4.5-5.9) X10^6/uL Hgb 15.6 (13.5-17.5) g/dL Hct 45.1 (41-53) % MCV 85.8 (80-100) fL MCH 29.6 (26-34) PG MCHC 34.5 (30-36) % RDW 13.1 (11.6-14.8) % Plt Count 287 (150-400) X10^3/uL Neut % (Auto) 74.2 (50-75) % Lymph % (Auto) 19.8 L (25-40) % Navarro % (Auto) 5.1 (3-14) % Eos % (Auto) 0.6 L (2-4) % Baso % (Auto) 0.3 (0-2) % Neut # (Auto) 9400 H (4570-8819) /uL Lymph # (Auto) 2500 (1259-7835) /uL Navarro # (Auto) 600 (0-900) /uL Eos # (Auto) 100 (0-450) /uL Baso # (Auto) 0 (0-100) /uL Sodium 141 (137-145) mmol/L Potassium 4.0 (3.4-5.1) mmol/L Chloride 101 (98-107) mmol/L Carbon Dioxide 30 (22-32) mmol/L BUN 10 (9-20) mg/dL Creatinine 0.90 (0.66-1.25) mg/dL Estimated GFR > 60.0 (>60) mL/min BUN/Creatinine Ratio 11.1 (6-22) Glucose 103 H (70-100) mg/dL Lactate 0.8 (0.7-2.1) mmol/L Calcium 10.2 (8.4-10.2) mg/dL Total Bilirubin 0.9 (0.2-1.3) mg/dL AST 26 (17-59) IU/L ALT 19 (<50) IU/L Alkaline Phosphatase 66 (38-126) U/L Total Protein 8.4 H (6.3-8.2) g/dL Albumin 5.1 H (3.5-5.0) g/dL Globulin 3.3 (1.7-4.1) g/dL Albumin/Globulin Ratio 1.5 (1.0-2.8) Lipase 37 (23-300) U/L Discharge Plan Departure Patient Disposition: Admitted As Inpatient Clinical Impression: Large bowel obstruction, Volvulus of large intestine Discharge Date/Time: 05/22/19 05:00 Referrals: Marcelo Meyer MD [Primary Care Provider] - Martínez Bapitste MD [Physician] - 2 Weeks (Call my office and make an appointment to see me in about 10-14 days. Call my office or text me for questions. If I do not respond to a text assume I have not seen it and call my office. If it is after hours an you need to reach the doctor on-call please call the office and listen to the entire message. At the end you will be connected with our page pulley mortiser operator who will page the doctor on-call. Try to avoid use of the emergency room unless you have a true emergency as your postoperative care is included in the operative care.) Admit Date/Time: 05/22/19 04:20 Admit Provider: Martínez Baptiste
--- NOTE | 2019-05-22 04:43 | PM.PREOP ---
Pre-operative Note Interval Note History & Physical reviewed/Exam performed by Physician: Yes Changes to H&P: No
[2019-05-22] MEDS: PIPERACILLIN-TAZO 3.375 GM/50 ML FROZ.PIGGY IV (05:10)
--- NOTE | 2019-05-22 05:11 | PC.NURSE ---
Pt's clothing and iphone went with him to surgery. Pt's valuables in messenger bag, including ipad, are stored in doctor's sleep room.
--- NOTE | 2019-05-22 05:53 | PM.AN.REGBLK ---
Regional Block Pre-procedure Procedure: Continuous Epidural for Post-operative Pain Management PMH/ROS narrative: healthy 38 y/o male with volvulus, for exploratory laparotomy with large bowel resection. Hx: No personal or family history of anesthesia problems. ASA Class: I (E) Labs: Hct 45.1 % (41-53) 05/22/19 03:00 Plt Count 287 X10^3/uL (150-400) 05/22/19 03:00 Medications: Current Medications Generic Name Dose Route Start Last Admin Trade Name Freq PRN Reason Stop Dose Admin Dextrose/Lactated Ringer's 1,000 mls @ 150 mls/hr 05/22/19 03:45 05/22/19 05:09 Dextrose 5%-Lactated Ringers IV 150 mls/hr CONT AUSTEN Infusion Allergies: Allergies Allergy/AdvReac Type Severity Reaction Status Date / Time No Known Allergies Allergy Verified 05/22/19 04:35 Procedure Insertion date: 05/22/19 Insertion time: 05:20 Prep/Local: betadine x3 Interspace: T10-11 Patient position: sitting Needle: 18 gauge Toribio Loss of resistance with: saline MERCEDEZ at (cm): 5 Catheter placed at SKIN (cm): 10 Catheter in SPACE (cm): 5 Initial Medications TEST DOSE time: 05:21 TEST DOSE: 1.5% lidocaine with epinephrine 1:200k (mL): 3 BOLUS DOSE time: 05:45 BOLUS DOSE (mL): 3 BOLUS DOSE med: other (lidocaine 2%) Post-procedure Anesthesia time START: 05:10 Anesthesia time END: 05:25 Post-procedure Anesthesia Assessment: Yes CV function: HR/BP stable and Yes Resp function: RR/sat/airway adequate
[2019-05-22] MEDS: ACETAMINOPHEN IV 1,000 MG/100 ML VIAL 400 MG IV (06:09)
--- NOTE | 2019-05-22 06:17 | SUR.OPER ---
Supine on padded OR bed, head on pillow, arms secured on padded arm boards at <90 degrees abduction, legs uncrossed, safety belt at thigh, tape over blanket over lower legs.
[2019-05-22] MEDS: LACTATED RINGERS 1,000 ML 1000 ML IV (06:27)
--- NOTE | 2019-05-22 08:33 | PM.OP.1 ---
Operative Date/Time/Diagnoses Date of procedure: 05/22/19 Time of procedure: 08:33 Pre-op diagnosis: Cecal volvulus Post-op diagnosis: same (No evidence of ischemia) Procedure & Clinicians Procedure: Resection of cecum and portion of ascending colon with ileocolic anastomosis Same procedure as scheduled: Yes Indications: Large bowel obstruction secondary to a cecal volvulus. Patient was taken emergently the operating room Surgeon: Martínez Baptiste Click Yes if Unassisted: Yes Anesthesia Type: General Operative Notes Findings: Large dilated cecum. No evidence of any ischemia. Torsion of the mesentery appeared to be chronic. Closure Type: primary Specimen(s): other (Cecum with attached appendix) Prosthetic devices, grafts, tissues, transplants, or devices: None Applied: catheter (Conte) Estimated Blood Loss (mL): 50 Blood products transfused: none Procedure in detail: The patient was placed supine on the operating room table and underwent general endotracheal anesthesia. He was prepped and draped in the usual fashion. Conte catheter was placed prior to prepping and draping. Vertical midline incision was made in the mid abdomen and carried in the peritoneal cavity. I assess the size and location of the cecum and extended the incision superiorly and just below the umbilicus. There was a piece of mesh used to repair a hernia at the umbilicus and I excised this. The cecum was delivered into the wound and was clearly viable. I divided adhesions of the cecum and ascending colon to surrounding small bowel. I also divided attachments to the omentum. This straightened out the large intestine. I made an opening in the mesentery and divided the terminal ileum almost flush with the cecum. I chose a point on the colon where the colon was normal in size and divided it as well using a GUILLAUME stapling device. The mesentery was divided between those 2 points staying very close to the colon wall so I did not injure any major vascular structures supplying either the terminal ileum or the remaining colon. Once this was removed I created a end of ileum to side of colon anastomosis in 2 layers. There was an inner running 3-0 Vicryl and an outer seromuscular silk. The back wall of the silks was placed 1st followed by the running suture line of 3 0 Vicryl and then the anterior layer of silks. The anastomosis was tested. It was widely patent. Material crossed easily from 1 side to the other and there was no evidence of leak. The mesenteric defect was closed with interrupted 3 0 Vicryl. The abdomen was copiously irrigated and suctioned free of fluid. All bleeding was controlled. The fascia was closed with a running double-stranded 1. Maxon with occasional interrupted 0 and 1 [id number] Vicryl sutures. The subcu was irrigated and partially reapproximated with interrupted 3 0 Vicryl. The skin was closed running 4 0 Vicryl subcuticular stitch and Steri-Strips. Dressing was applied and the patient was awakened, extubated taken recovery area in good condition. He had a thoracic epidural placed prior to the start of the procedure. It will remain in place for pain control postop. Complications: none Post-operative Condition: stable Disposition: PACU
[2019-05-22] MEDS: FENT 2MCG/ML BUPIV 0.125% EPI 200 MCG/100 ML PLAST..BAG 5 MCG EPIDURAL (08:41)
[2019-05-22] MEDS: HYDROMORPHONE 2 MG INJ IV (08:57)
--- NOTE | 2019-05-22 09:07 | SUR.PHASEI ---
Verified patient may have ice chips per Dr. Baptiste. Patient tolerating ice chips
--- NOTE | 2019-05-22 09:08 | SUR.PHASEI ---
Patient reported pain improving but declined more Dilaudid
--- NOTE | 2019-05-22 09:15 | SUR.PHASEI ---
Report called to Jack.
--- NOTE | 2019-05-22 09:36 | SUR.PHASEI ---
Patient transferred to ICU. Report to Jack. VS stable. Abd dressing CDI. Conte patent with clear, yellow fluid. IV saline locked. Epidural dressing and rate checked with Jack, infusing at 8ml/hr per Dr. Rogel.
[2019-05-22] MEDS: FENT 2MCG/ML BUPIV 0.125% EPI 200 MCG/100 ML PLAST..BAG 10 MCG EPIDURAL ×2 (10:21→16:38)
[2019-05-22] MEDS: GABAPENTIN 300 MG CAPSULE PO ×2 (10:22→21:57)
--- NOTE | 2019-05-22 10:26 | PC.NURSE ---
Addendum entered by Jackelyn Cunningham R.N. 05/22/19 14:44: CONTACTED DR. DE GUZMAN R/T / EPIDURAL EFFECTIVENESS- GIVEN SMALL BOLUS OF LIDOCAINE- VSS HR DECREASED TO 70 BPM B/P STABLE AT 128/76 Addendum entered by Jackelyn Cunningham R.N. 05/22/19 12:28: PT C/O LEAKING DEL CASTILLO - CHECKED AND PLACED ADDITIONAL 5CC OF NS AND CHANGED TO DRY PAD Original Note: RECEIVED PT TO ROOM 101 S/P EXP LAP WITH LARGE BOWEL RESECTION SECONDARY TO VOLVULOUS. HE HAS EPIDURAL OF BUPIVICAINE/FENTANYL INCREASED TO 10/H ( INCREASED DUE TO POOR PAIN CONTROL) PT DECLINES USING IV DILAUDID-LUNGS DIM BUT CLEAR, TOLERATING ICE CHIPS DENIES NAUSEA , SR/ST , IVF INFUSING AT 150CC/H, DEL CASTILLO PATENT AND ROOM AIR SPO2 96% - MIDLINE VERTICAL INCISION WITH GAUZE AND OPSITE COVERING - BOWEL TONES SILENT AT THIS TIME- AT BEDSIDE AND ADMISSION COMPLETE
--- NOTE | 2019-05-22 11:13 | PT-IP ANOTE ---
checked with ICU nurse and stated that pt just came back from surgery and to recheck this afternoon if pt will be ready for PT.
[2019-05-22] MEDS: HYDROMORPHONE 0.5 MG INJ IV ×3 (13:23→16:55)
--- NOTE | 2019-05-22 13:50 | PT-IP ANOTE ---
Checked with nursing and stated that pt has pain control issues and to have pt on hold for PT for today.
--- NOTE | 2019-05-22 14:00 | CM.DANOTE ---
DCP/Assessment: Reviewed chart. Patient is a 38yr old male admitted to I.. with bowel obstruction. Admitting provider is surgeon/Dr. Baptiste. PCP is Dr. Meyer. Primary payor is 1)[facility]. Patient admitted today and underwent large bowel resection. Met briefly with patient explained CM/SW role. [place] [facility] [place] employment at [employer]. Patient alert and oriented during visit and plans to d/c home when medically stable. At this time d/c date unknown but it is expected that patient will remain hospitalized for a few days. Patient is inpatient status. Notified patient that CM team would continue to follow for any potential d/c planning needs. Patient appreciative. Name/number of CM team placed on white board. P: Anticipate home when patient is medically stable. CM team to follow closely. MILES Juan Discharge Planning/Care Management CM Discharge Assessment Start: 05/22/19 13:57 Freq: Status: Active Protocol: Document 05/22/19 13:58 KJS (Rec: 05/22/19 14:00 KJS [id number]) Discharge Planning Assessment Assigned Gear Straightener MILES Juan Contact Information Gaby Goodwin (spouse) [phone] Advance Directives? No History Provided By Patient,Medical Record Prior Living Arrangements House Household Members spouse,family Type of transporation used prior to Drives own vehicle admit Independent with ADL's Yes Is patient alert and oriented? Yes Caregiver for Another No Barriers to Discharge No Discharge Plan Home Transportation Arrangement Family to provide transport when medically stable. Whiteboard Updated in Patient Room with Yes name and ext. # of Gear Straightener Review Status In Process Next Review Type Continued Stay Review
[2019-05-22] MEDS: ONDANSETRON 4 MG/2 ML INJ IV (17:36)
--- NOTE | 2019-05-22 17:39 | P.PN_ITS ---
Subjective Subjective Date Patient Seen: 05/22/19 Time Patient Seen: 17:00 Interval history: POD#0 for ex lap with partial large bowel resection with anastomosis, TEP placed preop at T10-11. Pt with adequate pain control post op, reports return of full sensation this afternoon. TEP infusion (0.125% bupiv with fentanyl 2mcg/mL) had been increased from 5 to 10mL/h with no improvement. Exam Vital Signs (past 8 hours): - 05/22/19 10:00 05/22/19 10:34 05/22/19 12:00 Temperature 98.4 F 98.3 F 98.2 F Pulse Rate 94 H 88 97 H Respiratory Rate 14 12 18 Blood Pressure 139/86 138/80 141/82 H Pulse Oximetry 99 96 100 05/22/19 14:00 05/22/19 16:04 Temperature 97.6 F Pulse Rate 75 92 H Respiratory Rate 12 16 Blood Pressure 131/80 138/72 Pulse Oximetry 95 95 Oxygen Delivery Method Room Air Oxygen Flow Rate 0 Narrative Exam Narrative: pt in moderate distress/pain on arrival. TEP insertion site revealed significant induration at the site, no pain, erythema or TTP. Catheter was clearly dislodged and infusate being delivered subcutaneously. Catheter removed, tip intact. Objective Labs Result Diagrams: 05/22/19 03:00 05/22/19 03:00 Labs: Laboratory Results - last 24 hr 05/22/19 05/22/19 05/22/19 03:00 03:00 03:00 WBC 12.7 H RBC 5.26 Hgb 15.6 Hct 45.1 MCV 85.8 MCH 29.6 MCHC 34.5 RDW 13.1 Plt Count 287 Neut % (Auto) 74.2 Lymph % (Auto) 19.8 L Schley % (Auto) 5.1 Eos % (Auto) 0.6 L Baso % (Auto) 0.3 Neut # (Auto) 9400 H Lymph # (Auto) 2500 Schley # (Auto) 600 Eos # (Auto) 100 Baso # (Auto) 0 Sodium 141 Potassium 4.0 Chloride 101 Carbon Dioxide 30 BUN 10 Creatinine 0.90 Estimated GFR > 60.0 BUN/Creatinine Ratio 11.1 Glucose 103 H Lactate 0.8 Calcium 10.2 Total Bilirubin 0.9 AST 26 ALT 19 Alkaline Phosphatase 66 Total Protein 8.4 H Albumin 5.1 H Globulin 3.3 Albumin/Globulin Ratio 1.5 Lipase 37 Nasal Screen MRSA (PCR) 05/22/19 09:40 WBC RBC Hgb Hct MCV MCH MCHC RDW Plt Count Neut % (Auto) Lymph % (Auto) Schley % (Auto) Eos % (Auto) Baso % (Auto) Neut # (Auto) Lymph # (Auto) Schley # (Auto) Eos # (Auto) Baso # (Auto) Sodium Potassium Chloride Carbon Dioxide BUN Creatinine Estimated GFR BUN/Creatinine Ratio Glucose Lactate Calcium Total Bilirubin AST ALT Alkaline Phosphatase Total Protein Albumin Globulin Albumin/Globulin Ratio Lipase Nasal Screen MRSA (PCR) Negative for mrsa Assessment & Plan Post-op Postoperative Procedures: Procedures Operation Date: 05/22/19 05:00 Actual Procedures Side Surgeon p Exploratory Laparotomy, Resection of terminal ilium and cecum with iliocolic anastomosis Martínez Baptiste MD Postoperative day: 0 Postoperative status narrative: dislodged epidural catheter. Postoperative plan narrative: Catheter replaced at T8-9. See note. Time Spent With Patient Time with patient: 15-24 minutes
--- NOTE | 2019-05-22 17:44 | PM.AN.REGBLK ---
Regional Block Pre-procedure Procedure: Continuous Epidural for Post-operative Pain Management Labs: Hct 45.1 % (41-53) 05/22/19 03:00 Plt Count 287 X10^3/uL (150-400) 05/22/19 03:00 Medications: Current Medications Generic Name Dose Route Start Last Admin Trade Name Freq PRN Reason Stop Dose Admin Enoxaparin Sodium 40 mg 05/22/19 14:00 05/22/19 14:44 Lovenox SUBCUT Not Given DAILY AUSTEN Gabapentin 300 mg 05/22/19 09:40 05/22/19 10:22 Neurontin PO 300 mg BID AUSTEN Administration Hydromorphone HCl 0.5 mg 05/22/19 13:10 05/22/19 16:55 Dilaudid IV 0.5 mg Q30MIN PRN Administration Pain, Severe (7-10) Dextrose/Lactated Ringer's 1,000 mls @ 150 mls/hr 05/22/19 03:45 05/22/19 16:41 Dextrose 5%-Lactated Ringers IV 150 mls/hr CONT AUSTEN Administration FENT 2MCG/ML BUPIV 0.125% EPI 200 mcg in 100 mls @ 10 mls/hr 05/22/19 10:13 05/22/19 16:38 Fentanyl/Bupiv/Ns 2mcg/Ml - 0.125% EPIDURAL 10 mls/hr CONT AUSTEN Administration Naloxone HCl 0.2 mg 05/22/19 09:40 Narcan IV Q2MIN PRN Opiate Reversal Ondansetron HCl 4 mg 05/22/19 05:57 05/22/19 17:36 Zofran IV 4 mg Q6HR PRN Administration Nausea And Vomiting Allergies: Allergies Allergy/AdvReac Type Severity Reaction Status Date / Time No Known Allergies Allergy Verified 05/22/19 04:35 Procedure Insertion date: 05/22/19 Insertion time: 17:00 Prep/Local: betadine x3 Interspace: T8-9 Patient position: sitting Needle: 18 gauge Toribio Loss of resistance with: saline MERCEDEZ at (cm): 5 Catheter placed at SKIN (cm): 10 Catheter in SPACE (cm): 5 Initial Medications TEST DOSE: 1.5% lidocaine with epinephrine 1:200k (mL): 3 BOLUS DOSE time: 17:30 BOLUS DOSE (mL): 2 BOLUS DOSE med: other (2% lidocaine MPF) Infusion INFUSION: 0.125% bupivacaine and with fentanyl 2 mcg/mL Initial rate (mL/hr): 5 Post-procedure Anesthesia time START: 17:00 Anesthesia time END: 17:30 Post-procedure Anesthesia Assessment: Yes CV function: HR/BP stable, Yes Resp function: RR/sat/airway adequate and Yes Pain control adequate
[2019-05-22] MEDS: PANTOPRAZOLE 40 MG VIAL IV (18:03)
[2019-05-22] MEDS: MELATONIN 5 MG 5 EACH PO (19:07)
--- NOTE | 2019-05-22 23:50 | PC.NURSE ---
Evening Shift Note: Pt received in pain, 8-9/10 after moving in bed to clean linens from leaking loyola catheter. Pt stated that he was in severe pain, but was reluctant to take dilaudid, prefers limited narcotic pain management. Pt given total 2 x 0.5 mg iv dilaudid initially with minor pain relief, pt was still unable to rest comfortably in bed. Pt was nauseated at this time and received [address] Marin had already been contacted by [facility] RN, and plan to re-evaluate epidural at 1700. Dr. Marin to bedside, pt still with pain up to 8/10, no appreciable epidural block. New epidural placed at bedside by Dr. Marin with 2 ml lidocaine bolus and set epidural rate to 5 ml/hr. Pt experienced almost immediate pain relief, after 15 minutes pt rated pain at 2-3/10 and tolerable. Epidural block from T5-T10 at that time. Pt was visibly less guarded, facial expression more relaxed than initially. Pt slept for much of shift, rated pain 2/10 when awake. Towards the end of the shift pt reported that pain was beginning to increase, up to 3-4/10. On-call anesthesiologist contacted with order to increase rate to 8 ml (see flowchart in EMAR for details). Anesthesia to bedside shortly thereafter to administer 1 time bolus of bupivicaine and increased rate to 10 ml/hr. Pt now resting comfortably. Call light in reach. Report given to oncoming RN. Will notify MD with changes.
[2019-05-23 04:05] VITALS: BP 121/70; PULSE 73; RESP 11; TEMP 37.2; O2SAT 99
[2019-05-23] MEDS: DEXTROSE 5%-LACTATED RINGERS 1,000 ML 150 ML IV ×2 (05:18→12:40)
[2019-05-23] MEDS: FENT 2MCG/ML BUPIV 0.125% EPI 200 MCG/100 ML PLAST..BAG 10 MCG EPIDURAL ×2 (05:57→16:41)
--- NOTE | 2019-05-23 06:32 | PC.NURSE ---
Open Hearth Furnace Laborer Note-After general operations agent anesthesiologist gave 2mg bupivicaine bolus and increased epidural infusion to 10ml/hr, patient's pain decreased so he was able to sleep most of night, states that he was comfortable when awake. Dermatone T5-T10. Midline abdominal drsg CDI. Tolerating ice chips and sips of apple juice without nausea/vomitting. Conte catheter patent. VSS.
[2019-05-23 09:00] VITALS: BP 128/77; PULSE 89; RESP 18; TEMP 37.2; O2SAT 98
--- NOTE | 2019-05-23 09:15 | PT.IIE ---
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) Right humeral fracture (Resolved) Umbilical hernia without mention of obstruction or gangrene (Resolved) Physical Therapy Inpatient Evaluation/Re-Eval M1 PT/OT-IP Prior Functional Status Start: 05/22/19 11:13 Freq: NEEDED Status: Active Protocol: Document 05/23/19 09:15 AB (Rec: 05/23/19 11:10 AB [id number]) Medical Review Prior Functional Status Medical History Reviewed Yes Diet/Fluid Consistency NPO Communication able to make needs known Mobility and Gait pt stated that he is independent with all mobilities and ambulation without AD Social History Household Members none Living Arrangements House Number of Floors (Floors) One Floor Number of Stairs To Enter/Railing? 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 PT-IP Current Condition Start: 05/22/19 11:13 Freq: NEEDED Status: Active Protocol: Document 05/23/19 09:15 AB (Rec: 05/23/19 11:10 AB [id number]) Physical Therapy Current Condition Current Condition Evaluation Date 05/23/19 Treatment Diagnosis large bowel obstruction s/p resection; generalized weakness Onset Date 05/22/19 Precautions Abdominal Surgery Precautions Log Roll,Lifting Restrictions, Gait Belt above Incisional Area M3 PT-IP Subjective Start: 05/22/19 11:13 Freq: NEEDED Status: Active Protocol: Document 05/23/19 09:15 AB (Rec: 05/23/19 11:10 AB [id number]) Subjective Physical Therapy Visit Type Type Initial Evaluation Visit Start Time 09:15 Visit Stop Time 09:48 Total Visit Minutes 33 Number of SUPERVISOR ORE DRESSING Visits 0 Physical Therapy Visit Comments Patient Comments pt agreeable to do PT Therapy Pain Assessment Pain When Pain Assessed At Rest Pain Present Pain Present Pain Reported Location Abdomen Intensity 3 Scale Used increase to 5/10 after ambulation Pain Management Techniques Timing of Activity with Medications M4 PT-IP Mobility and Gait Start: 05/22/19 11:13 Freq: NEEDED Status: Active Protocol: Document 05/23/19 09:15 AB (Rec: 05/23/19 11:10 AB [id number]) PT-Bed Mobility Assessment Rolling Type of Rolling Log Rolling Level of Assist Standby Assistance Supine to Sit Supine to Sit Standby Assistance Scooting Scooting to Edge of Bed Standby Assistance PT-Transfer Assessment Sit to and From Stand Sit to and from Stand Standby Assistance,1 Person Assistance Equipment Transfer Assistive Device Gait Belt Transfers Transfer Destination Chair Transfer Technique ambulated without AD Transfer Ability Level of Assist Standby Assistance Gait Assessment Gait Gait Assistance Required: Standby Assistance Distance (Feet) 200 Able to Maintain Weight Bearing Status Yes During Gait Assistive Devices Assistive Device None,Gait Belt Orthotic/Prosthetic Devices or Brace: No Gait Deviations General Gait Pattern Wide Based Gait Factors Limiting Gait Function Factors Limiting Gait Function Decreased Activity Tolerance, Pain Comments Gait Comments pt ambulated in the hallway without AD ~ 200 ft SBA. pt c /o increase pain after ambulation. BP 125/79 PT-Balance Assessment Sitting Balance and Reactions Static Sitting Balance Ability Normal Dynamic Sitting Balance Ability Normal Standing Balance and Reactions Static Standing Balance Ability Good Dynamic Standing Balance Ability Good Device Used without AD M5 PT-IP Objective Assessments Start: 05/22/19 11:13 Freq: NEEDED Status: Active Protocol: Document 05/23/19 09:15 AB (Rec: 05/23/19 11:10 AB [id number]) Orientation Orientation/Cognition Level of Alertness Alert Orientation Name,Age,Birthday,Month,Date, Year,Day of Week,Place, Situation Language Function Ability No Deficits Noted Safety Awareness Understands Safety Issues Memory Description No Deficits Noted Gross Range of Motion Lower Extremity ROM Assessment Within Functional Limits Strength Lower Extremity Strength Assessment Within Functional Limits Coordination Assessment Gross Coordination Gross Coordination WNL Sensation Assessment Sensation Gross Sensation WNL Muscle Tone Muscle Tone WNL Yes M6 PT-IP Treatment Start: 05/22/19 11:13 Freq: NEEDED Status: Active Protocol: Document 05/23/19 09:15 AB (Rec: 05/23/19 11:10 AB [id number]) Physical Therapy Treatment Education Education Provided Precautions,Safety M7 PT-IP Assessment and Plan Start: 05/22/19 11:13 Freq: NEEDED Status: Active Protocol: Document 05/23/19 09:15 AB (Rec: 05/23/19 11:10 AB [id number]) PT Summary Assessment and Plan Potential Rehabilitation Potential Good Status of Condition at Evaluation Stable Summary Impairments Pain,ROM,Strength,Balance,Bed Mobility,Transfers,Gait, Activity Tolerance Assessment Summary pt requiring SBA with mobility but with decrease activity tolerance and c/o increase pain after ambulation. pt plans to go to his ex-'s home after d/c. will conduct stair climbing training prior to d/c. Goals Bed Mobility Goal Independent Transfer Goal Independent Gait Goal Independent Gait Distance 300 Other Goals up/down 2 steps without rails SBA up/down 20 steps using one rail SBA Days to Meet Goals 10 Frequency of Treatment Frequency Of Treatment Once a Day Treatment Plan Physical Therapy Treatment Plan Bed Mobility Training,Transfer Training,Gait Training, Therapeutic Exercise,Balance Retraining,Post Op Education, Discharge Planning,Hot or Cold Pack,Neuromuscular Re-ed, Coordination Retraining,Manual Therapy Other Recommendations and Next Treatment ambulation, stair climbing Focus Recommendations To Nursing Amount of Assist Needed Standby Assistance Discharge Recommendations PT Discharge Recommendations Home with Assistance
[2019-05-23] MEDS: ENOXAPARIN 40 MG/0.4 ML SYRINGE SUBCUT (09:57)
[2019-05-23] MEDS: SODIUM CHLORIDE 0.9% FLUSH 10 ML IV (09:57)
[2019-05-23] MEDS: PANTOPRAZOLE 40 MG VIAL IV (09:58)
[2019-05-23] MEDS: GABAPENTIN 300 MG CAPSULE PO ×2 (09:58→20:58)
[2019-05-23 10:04] LABS: Add Manual Diff / Slide Review NO; Basophils Absolute Auto 100 /uL (0-100); Basophils Percent Auto 0.5 % (0-2); Eosinophils Absolute Auto 100 /uL (0-450); Eosinophils Percent Auto 0.8 % (2-4); Hematocrit 42.8 % (41-53); Hemoglobin 14.3 g/dL (13.5-17.5); Lymphocytes Absolute Auto 3100 /uL (1100-4500); Lymphocytes Percent Auto 27.6 % (25-40); Mean Corpuscular HGB Conc 33.5 % (30-36); Mean Corpuscular Hemoglobin 29.4 PG (26-34); Mean Corpuscular Volume 87.8 fL (80-100); Monocytes Absolute Auto 700 /uL (0-900); Monocytes Percent Auto 6.6 % (3-14); Neutrophils Absolute Auto 7300 /uL (1500-7000); Neutrophils Percent Auto 64.5 % (50-75); Platelet Count 228 X10^3/uL (150-400); Red Blood Cell Count 4.88 X10^6/uL (4.5-5.9); Red Cell Distribution Width 13.4 % (11.6-14.8); White Blood Cell Count 11.3 X10^3/uL (4.5-11.0)
[2019-05-23 10:16] LABS: Blood Urea Nitrogen 8 mg/dL (9-20); Carbon Dioxide 33 mmol/L (22-32); Chloride 103 mmol/L (98-107); Estimated Glomerular Filt Rate > 60.0 mL/min (>60); Glucose 92 mg/dL (70-100); HEMOLYSIS < 15 (0-50); Magnesium 1.9 mg/dL (1.6-2.3); Potassium 3.6 mmol/L (3.4-5.1); Sodium 142 mmol/L (137-145)
--- NOTE | 2019-05-23 10:25 | PC.NURSE ---
pt will adequate pain control on current settings of epidural ( 10ml/h) up ambulating with PT, reports passing flatus, [facility] cath patent with more than adequate uop- taking sips/chips with no c/o nausea- abd dressing cdi
--- NOTE | 2019-05-23 15:14 | P.PN_ITS ---
Subjective Subjective Interval history: POD#1 for ex lap with partial large bowel resection with anastomosis. TEP replaced yesterday pm at T8-9 due to infiltration of previous TEP. Pt given one 5mL bolus of 0.25% bupiv last night with increase in rate from 5 - 10mL/h. Pt comfortable since. Tolerating clears. No nausea. Exam Vital Signs (past 8 hours): - 12// 04:05 12// 09:00 Temperature 99.0 F 98.9 F Pulse Rate 73 89 Respiratory Rate 11 L 18 Blood Pressure 121/70 128/77 Pulse Oximetry 99 98 Oxygen Delivery Method Room Air Oxygen Flow Rate 0 Narrative Exam Narrative: Pt alert, comfortable appearing, sitting up in bed. Block level to cold sensation equal bilaterally T4-10. Pt aware of lower aspect of incision, but pain control adequate. TEP insertion site 10cm at skin, no erythema, induration, or TTP. Dressing c/d/i. Objective Labs Result Diagrams: 05/23/19 09:55 05/23/19 09:55 Labs: Laboratory Results - last 24 hr 05/22/19 09:40 Nasal Screen MRSA (PCR) Negative for mrsa Assessment & Plan Assessment & Plan narrative: POD #1 for ex lap with partial colon resection and anastomosis. TEP with adequate coverage of surgical site, symmetrical block T4- 10, pain control adequate with no need for additional narcotics. Tolerating PO and able to ambulate. Will continue with current rate of 10mL/h 0.125% bupiv with fentanyl 2mcg/mL.
[2019-05-23] MEDS: ACETAMINOPHEN 325 MG TABLET 650 MG PO (16:27)
[2019-05-23 16:42] VITALS: BP 127/63; PULSE 85; RESP 17; TEMP 37.4; O2SAT 95
--- NOTE | 2019-05-23 16:52 | PC.NURSE ---
Addendum entered by Mildred Colon R.N. 05/23/19 22:19: 2100- Patient states he would like pain med with his night medications. Rates pain at 4/10 toward the lower abdomen is most tender. Dressing is intact. Epidural infusion continues per order. Epidural site visualized no drainage noted dressing is intact some old dry blood noted. Original Note: 1600- Patient states he has a headache but otherwise he feels his pain is well controlled. Epidural is covering fromj T4 to T10. No additional pain medication is needed at this time. Dr. Baptiste called to obtain tylenol for the headache. Will monitor.
--- NOTE | 2019-05-23 18:25 | P.PN_ITS ---
Subjective Subjective Date Patient Seen: 05/23/19 Time Patient Seen: 18:25 Interval history: The patient is postop day 1. From a cecal resection for volvulus. He is doing well. He has been up ambulated. No nausea or vomiting. He tolerated his liquid diet that had some increased abdominal cramping after it. He is passing flatus. No bowel movement yet. Exam Vital Signs (past 8 hours): - 05/23/19 16:42 Temperature 99.4 F Pulse Rate 85 Respiratory Rate 17 Blood Pressure 127/63 Pulse Oximetry 95 Oxygen Delivery Method Room Air Oxygen Flow Rate 0 Narrative Exam Narrative: His T-max is this evening's temperature. His lungs are clear. He has excellent respiratory effort. Heart little hyperdynamic but regular rate and rhythm without murmur gallop. Abdomen is flat dressing is intact no drainage. Objective Labs Result Diagrams: 05/23/19 09:55 05/23/19 09:55 Labs: Laboratory Results - last 24 hr 05/23/19 05/23/19 09:55 09:55 WBC 11.3 H RBC 4.88 Hgb 14.3 Hct 42.8 MCV 87.8 MCH 29.4 MCHC 33.5 RDW 13.4 Plt Count 228 Neut % (Auto) 64.5 Lymph % (Auto) 27.6 [place] % (Auto) 6.6 Eos % (Auto) 0.8 L Baso % (Auto) 0.5 Neut # (Auto) 7300 H Lymph # (Auto) 3100 [place] # (Auto) 700 Eos # (Auto) 100 Baso # (Auto) 100 Sodium 142 Potassium 3.6 Chloride 103 Carbon Dioxide 33 H BUN 8 L Creatinine 0.80 Estimated GFR > 60.0 BUN/Creatinine Ratio 10.0 Glucose 92 Calcium 9.0 Magnesium 1.9 Assessment & Plan Post-op Postoperative Procedures: Procedures Operation Date: 05/22/19 05:00 Actual Procedures Side Surgeon p Exploratory Laparotomy, Resection of terminal ilium and cecum with iliocolic anastomosis Martínez Baptiste MD Postoperative day: 1 Postoperative status: doing well Postoperative plan: routine post-op care Postoperative plan narrative: Will see how he does with breakfast. Labs are no anamaria an are great. No new plans. Reduced is fluid IV intake now that he is on liquids. Will restart his Adderall.
[2019-05-23 19:59] VITALS: BP 120/49; PULSE 68; RESP 16; TEMP 36.3; O2SAT 97
[2019-05-23] MEDS: MELATONIN 5 MG 5 EACH PO (20:57)
[2019-05-23] MEDS: HYDROMORPHONE 0.5 MG INJ IV (20:59)
[2019-05-24] MEDS: DEXTROSE 5%-LACTATED RINGERS 1,000 ML 80 ML IV ×2 (00:55→13:11)
[2019-05-24] MEDS: FENT 2MCG/ML BUPIV 0.125% EPI 200 MCG/100 ML PLAST..BAG 10 MCG EPIDURAL ×2 (00:58→20:04)
[2019-05-24 01:06] VITALS: BP 101/63; PULSE 66; RESP 18; TEMP 37.7; O2SAT 96
[2019-05-24] MEDS: HYDROMORPHONE 0.5 MG INJ IV ×3 (02:06→03:39)
[2019-05-24] MEDS: ONDANSETRON 4 MG/2 ML INJ IV ×2 (03:43→10:23)
[2019-05-24 04:00] VITALS: PULSE 76; O2SAT 96
[2019-05-24 10:00] VITALS: BP 137/74; PULSE 75; RESP 20; TEMP 37.8; O2SAT 98
[2019-05-24] MEDS: PANTOPRAZOLE 40 MG VIAL IV (10:13)
[2019-05-24] MEDS: GABAPENTIN 300 MG CAPSULE PO ×2 (10:13→21:10)
[2019-05-24] MEDS: SODIUM CHLORIDE 0.9% FLUSH 10 ML IV (10:13)
[2019-05-24] MEDS: BISACODYL 10 MG SUPP PR (10:13)
--- NOTE | 2019-05-24 11:30 | PT.IPTN ---
Current Diagnoses Volvulus (05/22/19) Surgery Performed Operation Date: 05/22/19 05:00 Actual Procedures p Exploratory Laparotomy, Resection of terminal ilium and cecum with iliocolic anastomosis - Martínez Baptiste MD Physical Therapy Treatment Note M2 PT-IP Current Condition Start: 05/22/19 11:13 Freq: NEEDED Status: Active Protocol: Document 05/23/19 09:15 AB (Rec: 05/23/19 11:10 AB [id number]) Physical Therapy Current Condition Current Condition Evaluation Date 05/23/19 Treatment Diagnosis large bowel obstruction s/p resection; generalized weakness Onset Date 05/22/19 Precautions Abdominal Surgery Precautions Log Roll,Lifting Restrictions, Gait Belt above Incisional Area M3 PT-IP Subjective Start: 05/22/19 11:13 Freq: NEEDED Status: Active Protocol: Document 05/24/19 11:30 AB (Rec: 05/24/19 12:11 AB [id number]) Subjective Physical Therapy Visit Type Type Initial Evaluation Visit Start Time 11:30 Visit Stop Time 11:49 Total Visit Minutes 19 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 of 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 Visits 0 Physical Therapy Visit Comments Patient Comments stated that he is not feeling well today; stated pain is ok but just not feeling well and feeling chilly M4 PT-IP Mobility and Gait Start: 05/22/19 11:13 Freq: NEEDED Status: Active Protocol: Document 05/24/19 11:30 AB (Rec: 05/24/19 12:11 AB [id number]) PT-Bed Mobility Assessment Rolling Type of Rolling Log Rolling Level of Assist Standby Assistance Supine to Sit Supine to Sit Standby Assistance Sit to Supine Sit to Supine Standby Assistance Scooting Scooting to Edge of Bed Standby Assistance PT-Transfer Assessment Sit to and From Stand Sit to and from Stand Standby Assistance Equipment Transfer Assistive Device Gait Belt Orthotic/Prosthetic Devices or Brace: No Gait Assessment Gait Gait Assistance Required: Standby Assistance Distance (Feet) 100 Able to Maintain Weight Bearing Status Yes During Gait Assistive Devices Assistive Device Gait Belt Orthotic/Prosthetic Devices or Brace: No Factors Limiting Gait Function Factors Limiting Gait Function Decreased Activity Tolerance Comments Gait Comments pt stated that he is not feeling well today but agreed to do ambulation and completed . has slower torsten with ambulation today but without LOB. pt requested to go back to bed after wards. positioned in bed. call light and table placed within reach . M5 PT-IP Objective Assessments Start: 05/22/19 11:13 Freq: NEEDED Status: Active Protocol: Document 05/23/19 09:15 AB (Rec: 05/23/19 11:10 AB [id number]) Orientation Orientation/Cognition Level of Alertness Alert Orientation Name,Age,Birthday,Month,Date, Year,Day of Week,Place, Situation Language Function Ability No Deficits Noted Safety Awareness Understands Safety Issues Memory Description No Deficits Noted Gross Range of Motion Lower Extremity ROM Assessment Within Functional Limits Strength Lower Extremity Strength Assessment Within Functional Limits Coordination Assessment Gross Coordination Gross Coordination WNL Sensation Assessment Sensation Gross Sensation WNL Muscle Tone Muscle Tone WNL Yes M6 PT-IP Treatment Start: 05/22/19 11:13 Freq: NEEDED Status: Active Protocol: Document 05/24/19 11:30 AB (Rec: 05/24/19 12:11 AB [id number]) Physical Therapy Treatment Education Education Provided Safety M7 PT-IP Assessment and Plan Start: 05/22/19 11:13 Freq: NEEDED Status: Active Protocol: Document 05/24/19 11:30 AB (Rec: 05/24/19 12:11 AB [id number]) PT Summary Assessment and Plan Potential Rehabilitation Potential Good Summary Impairments Pain,ROM,Strength,Balance, Coordination,Sensation,Tone, Cognition,Bed Mobility, Transfers,Gait,Activity Tolerance Progress Towards Goals Slow Progress due to Medical Issues,Slow Progress due to Activity Tolerance Assessment Summary pt requires SBA with mobility but unable to tolerate much today with c/o not feeling well. will continue to assess progress. pt plans to go home and family to assist him. pt has stairs at home and will have to complete prior to d/c. Goals Bed Mobility Goal Independent Transfer Goal Independent Gait Goal Independent Gait Distance 300 Other Goals up/down 2 steps without rails SBA up/down 20 steps using one rail SBA Days to Meet Goals 10 Frequency of Treatment Frequency Of Treatment Once a Day Treatment Plan Physical Therapy Treatment Plan Bed Mobility Training,Transfer Training,Gait Training, Therapeutic Exercise,Balance Retraining,Post Op Education, Discharge Planning,Hot or Cold Pack,Neuromuscular Re-ed, Coordination Retraining,Manual Therapy Other Recommendations and Next Treatment ambulation, stair climbing Focus Recommendations To Nursing Amount of Assist Needed Standby Assistance Discharge Recommendations PT Discharge Recommendations Home with Assistance
--- NOTE | 2019-05-24 11:39 | PM.PNPO.1 ---
Subjective Subjective Date Patient Seen: 05/24/19 Time Patient Seen: 11:39 Interval history: The patient is a gentleman post cecal resection. He is feeling well. He had a lot of pain when his epidural came out again last night. Anesthesiologists came in replaced it. His comfortable now. Exam Vital Signs (past 8 hours): - 05/24/19 04:00 05/24/19 10:00 Temperature 100.0 F H Pulse Rate 76 75 Respiratory Rate 20 Blood Pressure 137/74 Pulse Oximetry 96 98 Oxygen Delivery Method Room Air Oxygen Flow Rate 0 Narrative Exam Narrative: Lungs are clear to auscultation. Heart regular rate and rhythm no murmur gallop. Abdomen is is flat soft. Incision is without cellulitis. Conte is in place. Objective Labs Result Diagrams: 05/23/19 09:55 05/23/19 09:55 Assessment & Plan Post-op Postoperative Procedures: Procedures Operation Date: 05/22/19 05:00 Actual Procedures Side Surgeon p Exploratory Laparotomy, Resection of terminal ilium and cecum with iliocolic anastomosis Martínez Baptiste MD Postoperative day: 2 Postoperative status narrative: Patient has a low-grade temp. No obvious source. We will send a UA. Will also continue to work on his breathing in ambulation. Patient may shower. I do not desire that the epidural be replaced again should to come out.
[2019-05-24] MEDS: ENOXAPARIN 40 MG/0.4 ML SYRINGE SUBCUT (13:09)
[2019-05-24 13:11] VITALS: BP 132/67; PULSE 80; RESP 18; TEMP 36.8; O2SAT 96
[2019-05-24] MEDS: ACETAMINOPHEN 325 MG TABLET 650 MG PO (13:11)
[2019-05-24] MEDS: AMPHETAMINE PO (13:19)
[2019-05-24] MEDS: DEXTROAMPHETAMINE PO (13:19)
[2019-05-24 13:48] LABS: Bacteria Urine None Seen; RBC Urine None Seen (0-5/HPF); WBC Urine None Seen (0-5/HPF)
--- NOTE | 2019-05-24 13:48 | PC.NURSE ---
Pt reports feeling sick today. Unable to eat breakfast r/t nausea and upset stomach. Medicated with scheduled protonix and prn zofran with relief reported by pt. Epidural infusing giving adequate pain relief (pt denies pain) at 10 ml/hr. Dsg CDI. Decreased sensation at T6 bilaterally with full sensation starting at T8 and continuing distally and bilaterally. Dr. Baptiste rounded and removed dsg. Incision is well approximated with steri strips. Ambulated x2 around nurses station this shift. Small liquid stool. Currently sitting up to chair.
[2019-05-24 13:50] LABS: Appearance Urine UA CLEAR; Bilirubin Urine UA NEGATIVE (NEGATIVE); Color Urine UA YELLOW; Glucose Urine UA NEGATIVE (Negative); Ketones Urine UA NEGATIVE (NEGATIVE); Leukocyte Esterase Urine UA NEGATIVE (NEGATIVE); Nitrite Urine UA NEGATIVE (Negative); Occult Blood Urine UA NEGATIVE (Negative); Protein Urine UA NEGATIVE (Negative); Urobilinogen Urine UA >=8.0 E.U./dL (0.2); pH Urine UA 7.5 (4.5-8.0)
[2019-05-24 13:59] LABS: Culture Indicated Urine Cult Not Indicated; Urine Comments Microscopic Normal
--- NOTE | 2019-05-24 14:15 | P.PN_ITS ---
Subjective Subjective Date Patient Seen: 05/24/19 Time Patient Seen: 07:15 Interval history: Pt awoke last night with significant abdominal pain, rated 9/10. Anesthesia was called, epidural was replaced around 0400. Prior to going back to sleep, pt reported adequate pain relief with new epidural. This afternoon, pt reports minimal to no pain. Tolerating clears, able to ambulate. Exam Vital Signs (past 8 hours): - 05/24/19 01:06 05/24/19 04:00 Temperature 99.8 F H Pulse Rate 66 76 Respiratory Rate 18 Blood Pressure 101/63 Pulse Oximetry 96 96 Oxygen Delivery Method Room Air Oxygen Flow Rate 0 Narrative Exam Narrative: Pt alert, no apparent pain. Block approx T4-10 bilaterally, TEP insertion site c/d/i, no pain, erythema, or TTP. Objective Labs Result Diagrams: 05/23/19 09:55 05/23/19 09:55 Labs: Laboratory Results - last 24 hr 05/23/19 05/23/19 09:55 09:55 WBC 11.3 H RBC 4.88 Hgb 14.3 Hct 42.8 MCV 87.8 MCH 29.4 MCHC 33.5 RDW 13.4 Plt Count 228 Neut % (Auto) 64.5 Lymph % (Auto) 27.6 [place] % (Auto) 6.6 Eos % (Auto) 0.8 L Baso % (Auto) 0.5 Neut # (Auto) 7300 H Lymph # (Auto) 3100 [place] # (Auto) 700 Eos # (Auto) 100 Baso # (Auto) 100 Sodium 142 Potassium 3.6 Chloride 103 Carbon Dioxide 33 H BUN 8 L Creatinine 0.80 Estimated GFR > 60.0 BUN/Creatinine Ratio 10.0 Glucose 92 Calcium 9.0 Magnesium 1.9 Assessment & Plan Assessment & Plan narrative: epidural replaced, now POD#2 for cecal resection. Plan to continue today current rate through tonight. Plan to cap epidural at 0700. If pain manageable, will pull catheter in anticipation of discharge. Will coordinate with gen surg. Will need 12 hours after last dose of enoxaparin prior to removal, then wait 4 hours after removal before resuming.
[2019-05-24 15:43] VITALS: BP 138/76; PULSE 76; RESP 18; TEMP 36.8; O2SAT 99
--- NOTE | 2019-05-24 16:29 | PC.NURSE ---
Addendum entered by Mildred Colon R.N. 05/24/19 22:11: 2200- Resting comfortably. Po pain med given for sleep. Bowels are moving but contents are mostly mucoid. Patient walked multiple times and is using his IS. Stable Original Note: 1530- Patient up walking. States his pain is under good control with the epidural. IVF infusing per order. Diet has been advanced patient denies nausea at this time. Will monitor.
[2019-05-24] MEDS: MELATONIN 5 MG 5 EACH PO (21:10)
[2019-05-24] MEDS: OXYCODONE IR 10 MG TABLET PO (21:11)
[2019-05-25 00:14] VITALS: BP 130/74; PULSE 82; RESP 15; TEMP 37; O2SAT 96
[2019-05-25] MEDS: DEXTROSE 5%-LACTATED RINGERS 1,000 ML 80 ML IV (01:43)
[2019-05-25 04:52] VITALS: BP 134/81; PULSE 84; RESP 15; TEMP 36.7; O2SAT 98
[2019-05-25] MEDS: OXYCODONE IR 10 MG TABLET 15 MG PO ×5 (05:18→22:23)
[2019-05-25 05:32] LABS: Add Manual Diff / Slide Review NO; Basophils Absolute Auto 0 /uL (0-100); Basophils Percent Auto 0.3 % (0-2); Eosinophils Absolute Auto 200 /uL (0-450); Hematocrit 37.5 % (41-53); Hemoglobin 12.8 g/dL (13.5-17.5); Lymphocytes Absolute Auto 2400 /uL (1100-4500); Lymphocytes Percent Auto 39.2 % (25-40); Mean Corpuscular HGB Conc 34.2 % (30-36); Mean Corpuscular Hemoglobin 29.6 PG (26-34); Mean Corpuscular Volume 86.4 fL (80-100); Monocytes Absolute Auto 500 /uL (0-900); Monocytes Percent Auto 8.1 % (3-14); Neutrophils Absolute Auto 3100 /uL (1500-7000); Neutrophils Percent Auto 49.4 % (50-75); Platelet Count 191 X10^3/uL (150-400); Red Blood Cell Count 4.34 X10^6/uL (4.5-5.9); Red Cell Distribution Width 12.7 % (11.6-14.8); White Blood Cell Count 6.2 X10^3/uL (4.5-11.0)
[2019-05-25 09:00] VITALS: BP 142/90; PULSE 85; RESP 17; TEMP 36.9; O2SAT 98
[2019-05-25] MEDS: SODIUM CHLORIDE 0.9% FLUSH 10 ML IV (09:00)
[2019-05-25] MEDS: ONDANSETRON 4 MG/2 ML INJ IV (09:01)
[2019-05-25] MEDS: GABAPENTIN 300 MG CAPSULE PO ×2 (09:02→21:23)
[2019-05-25] MEDS: ACETAMINOPHEN 325 MG TABLET 650 MG PO (09:02)
[2019-05-25] MEDS: PANTOPRAZOLE 40 MG TABLET PO (09:02)
--- NOTE | 2019-05-25 11:34 | CM.DPNOTE ---
DCP Cont: Placed call to JARROD Richardson this morning; DC today and DC needs? 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 P: DC likely home w/family today via pov. JW
--- NOTE | 2019-05-25 11:41 | PT.IPTN ---
Current Diagnoses Volvulus (05/22/19) Surgery Performed Operation Date: 05/22/19 05:00 Actual Procedures p Exploratory Laparotomy, Resection of terminal ilium and cecum with iliocolic anastomosis - Martínez Baptiste MD Physical Therapy Treatment Note M2 PT-IP Current Condition Start: 05/22/19 11:13 Freq: NEEDED Status: Active Protocol: Document 05/23/19 09:15 AB (Rec: 05/23/19 11:10 AB [id number]) Physical Therapy Current Condition Current Condition Evaluation Date 05/23/19 Treatment Diagnosis large bowel obstruction s/p resection; generalized weakness Onset Date 05/22/19 Precautions Abdominal Surgery Precautions Log Roll,Lifting Restrictions, Gait Belt above Incisional Area M3 PT-IP Subjective Start: 05/22/19 11:13 Freq: NEEDED Status: Active Protocol: Document 05/25/19 11:41 AB (Rec: 05/25/19 12:15 AB [id number]) Subjective Physical Therapy Visit Type Type Treatment Note Visit Start Time 11:41 Visit Stop Time 11:51 Total Visit Minutes [address] Visits 0 Physical Therapy Visit Comments Patient Comments pt agreeable to do PT Therapy Pain Assessment Pain When Pain Assessed At Rest Pain Present Pain Present Pain Reported Location Abdomen Intensity 6 Scale Used increases with mobility Pain Management Techniques Timing of Activity with Medications M4 PT-IP Mobility and Gait Start: 05/22/19 11:13 Freq: NEEDED Status: Active Protocol: Document 05/25/19 11:41 AB (Rec: 05/25/19 12:15 AB [id number]) PT-Bed Mobility Assessment Supine to Sit Supine to Sit Independent Sit to Supine Sit to Supine Independent Scooting Scooting to Edge of Bed Independent Scooting Up and Down in Bed Independent PT-Transfer Assessment Sit to and From Stand Sit to and from Stand Independent,Standby Assistance Equipment Transfer Assistive Device None,Gait Belt Orthotic/Prosthetic Devices or Brace: No Gait Assessment Gait Gait Assistance Required: Standby Assistance Distance (Feet) 300 Able to Maintain Weight Bearing Status Yes During Gait Assistive Devices Assistive Device None,Gait Belt Factors Limiting Gait Function Factors Limiting Gait Function Pain Stair Climbing Assessment Evaluation Level of Assist On Stairs Standby Assistance Devices Stair Climbing Assistive Devices None,Left Railing Technique/Endurance Stair Climbing Direction Ascend and Descend Stair Climbing Technique Step Over Step,Step to Step Number of Steps Climbed 27 Stair Climbing Set # Repetitions (reps) 1 Comments Stair Climbing Comments completed up/down 2 steps without rails SBA; up/down 23 steps with one rail SBA M5 PT-IP Objective Assessments Start: 05/22/19 11:13 Freq: NEEDED Status: Active Protocol: Document 05/23/19 09:15 AB (Rec: 05/23/19 11:10 AB [id number]) Orientation Orientation/Cognition Level of Alertness Alert Orientation Name,Age,Birthday,Month,Date, Year,Day of Week,Place, Situation Language Function Ability No Deficits Noted Safety Awareness Understands Safety Issues Memory Description No Deficits Noted Gross Range of Motion Lower Extremity ROM Assessment Within Functional Limits Strength Lower Extremity Strength Assessment Within Functional Limits Coordination Assessment Gross Coordination Gross Coordination WNL Sensation Assessment Sensation Gross Sensation WNL Muscle Tone Muscle Tone WNL Yes M6 PT-IP Treatment Start: 05/22/19 11:13 Freq: NEEDED Status: Active Protocol: Document 05/24/19 11:30 AB (Rec: 05/24/19 12:11 AB [id number]) Physical Therapy Treatment Education Education Provided Safety M7 PT-IP Assessment and Plan Start: 05/22/19 11:13 Freq: NEEDED Status: Active Protocol: Document 05/25/19 11:41 AB (Rec: 05/25/19 12:15 AB [id number]) PT Summary Assessment and Plan Potential Rehabilitation Potential Good Summary Impairments Pain,Activity Tolerance Progress Towards Goals Progressing Toward Goals Assessment Summary pt doing well with mobility and is modified independent in room mobility, SBA for ambulation for long distances for safety with pain limiting activity. pt also completed stairs SBA. pt may go home when medically stable. instructed to ambulate as much as he can and agreed. no further PT intervention indicated at this time. informed nurse that pt will be d/c'd from PT and agreed. Goals Bed Mobility Goal Independent Transfer Goal Independent Gait Goal Independent Gait Distance 300 Other Goals up/down 2 steps without rails SBA up/down 20 steps using one rail SBA Days to Meet Goals 10 Frequency of Treatment Frequency Of Treatment Discharge Treatment Plan Physical Therapy Treatment Plan Bed Mobility Training,Transfer Training,Gait Training, Therapeutic Exercise,Balance Retraining,Post Op Education, Discharge Planning,Hot or Cold Pack,Neuromuscular Re-ed, Coordination Retraining,Manual Therapy Other Recommendations and Next Treatment ambulation, stair climbing Focus Recommendations To Nursing Amount of Assist Needed Independent,Standby Assistance Discharge Recommendations PT Discharge Recommendations Home with Assistance
--- NOTE | 2019-05-25 11:58 | PC.NURSE ---
POD 3. Doing well. Epidural catheter removed with tip intact at 0915. Pt tolerated well and has good pain control with PRN oxycodone/tylenol/gabapentin. Removed loyola catheter at same time. Pt has voided 50 ML of clear yellow urine post removal. Some swelling and tenderness noted at IV site. Removed PIV with tip intact. Awaiting MD rounds to clarify need to restart. He is up ambulating in room independently with a steady gait. C/o abdominal bloating and is requesting bowel med regimen. Reports concerns over post op constipation r/t opiods. Provided pt with prune juice x2 and educated to drinking plenty of water and increasing activity to stimulate bowel motility. Pt demonstrates understanding. Will request bowel med regimen when MD rounds. Safety intact.
--- NOTE | 2019-05-25 12:48 | PM.PNPO.1 ---
Subjective Subjective Date Patient Seen: 05/25/19 Time Patient Seen: 12:48 Interval history: Patient had his epidural per old earlier. He is tolerating the pain with oral pain medications. Has been walking. Comfortable but feeling very bloated today. He feels like his back tract. Not passing very much gas and not having any bowel movements. Urinating fine now that the Conte is out. Exam Vital Signs (past 8 hours): - 05/25/19 04:52 05/25/19 09:00 Temperature 98.0 F 98.5 F Pulse Rate 84 85 Respiratory Rate 15 17 Blood Pressure 134/81 142/90 H Pulse Oximetry 98 98 Oxygen Delivery Method Room Air Oxygen Flow Rate 0 Narrative Exam Narrative: Abdomen is flat soft incision is intact no cellulitis no unusual tenderness Objective Labs Result Diagrams: 05/25/19 04:44 05/23/19 09:55 Labs: Laboratory Results - last 24 hr 05/24/19 05/25/19 13:02 04:44 WBC 6.2 RBC 4.34 L Hgb 12.8 L Hct 37.5 L MCV 86.4 MCH 29.6 MCHC 34.2 RDW 12.7 Plt Count 191 Neut % (Auto) 49.4 L Lymph % (Auto) 39.2 [place] % (Auto) 8.1 Eos % (Auto) 3.0 Baso % (Auto) 0.3 Neut # (Auto) 3100 Lymph # (Auto) 2400 [place] # (Auto) 500 Eos # (Auto) 200 Baso # (Auto) 0 Urine Color Yellow Urine Appearance Clear Urine pH 7.5 Ur Specific [place] 1.010 Urine Protein Negative Urine Glucose (UA) Negative Urine Ketones Negative Urine Occult Blood Negative Urine Nitrate Negative Urine Bilirubin Negative Urine Urobilinogen >=8.0 Ur Leukocyte Esterase Negative Urine RBC None seen Urine WBC None seen Urine Bacteria None seen Ur Culture Indicated? Cult not indicated Micro UA Comment Microscopic normal Assessment & Plan Post-op Postoperative Procedures: Procedures Operation Date: 05/22/19 05:00 Actual Procedures Side Surgeon p Exploratory Laparotomy, Resection of terminal ilium and cecum with iliocolic anastomosis Martínez Baptiste MD Postoperative status: doing well Postoperative plan narrative: Not quite ready to be discharged. He really hasn't had reasonable return of bowel function yet. A concerned that he is feeling bloated and we may have an ileus developing. Will give him a suppository. Oral nonsteroidals.
[2019-05-25] MEDS: BISACODYL 10 MG SUPP PR (14:06)
[2019-05-25] MEDS: ENOXAPARIN 40 MG/0.4 ML SYRINGE SUBCUT (14:07)
[2019-05-25 16:40] VITALS: BP 135/86; PULSE 70; RESP 16; TEMP 36.9; O2SAT 97
[2019-05-25] MEDS: KETOROLAC 10 MG TABLET PO (17:30)
[2019-05-25] MEDS: MELATONIN 5 MG 5 EACH PO (21:23)
[2019-05-26 06:10] VITALS: BP 133/73; PULSE 64; RESP 18; TEMP 36.8; O2SAT 98
[2019-05-26] MEDS: KETOROLAC 10 MG TABLET PO ×4 (06:18→23:45)
[2019-05-26] MEDS: PANTOPRAZOLE 40 MG TABLET PO (06:18)
[2019-05-26 08:00] VITALS: BP 162/76; PULSE 74; RESP 20; TEMP 36.6; O2SAT 96
[2019-05-26] MEDS: OXYCODONE IR 10 MG TABLET PO (08:06)
[2019-05-26] MEDS: GABAPENTIN 300 MG CAPSULE PO ×2 (08:06→21:09)
--- NOTE | 2019-05-26 08:59 | DI.RAD.S_ITS ---
PROCEDURE: XR ABDOMEN MIN 2V INDICATIONS: potential ileus three-day status post surgery TECHNIQUE: 2 views of the abdomen were acquired. COMPARISON: [facility], CT, CT ABDOMEN PELVIS W CON, 05/22/2019, 2:59. FINDINGS: Surgical changes and devices: None. Bowel: There is a small to moderate amount of pneumoperitoneum demonstrated within the upper abdomen. Findings compatible with congenital malrotation again noted with leftward distribution of the colon and rightward distribution of the small bowel. Small bowel loops are normal in appearance. There is mild gas distention of the colon likely reflecting an ileus. Soft tissues: No suspicious abdominal calcifications. Bones: No suspicious bony abnormalities. IMPRESSION: 1. Small to moderate amount of pneumoperitoneum. Although the findings may be associated with recent surgery, the amount of pneumoperitoneum may be higher than expected three-days after surgery. If clinical concern persists, recommend further evaluation with a repeat CT. 2. Mild gas distention of the colon likely reflecting an ileus. 3. Distribution of bowel compatible with congenital malrotation as seen on the recent CT redemonstrated. Dictated by: Michael Mahajan M.D. on 05/26/2019 at 8:37 Approved by: Michael Mahajan M.D. on 05/26/2019 at 8:50
[2019-05-26] MEDS: BISACODYL 10 MG SUPP PR (09:21)
[2019-05-26] MEDS: SENNOSIDES 8.6 MG TABLET PO (13:40)
--- NOTE | 2019-05-26 16:07 | PM.PNPO.1 ---
Subjective Subjective Date Patient Seen: 05/26/19 Time Patient Seen: 16:08 Interval history: Patient is still having a lot of crampy abdominal pain. He of small bowel movement earlier. Exam Vital Signs (past 8 hours): Oxygen Delivery Method Room Air Oxygen Flow Rate 0 Narrative Exam Narrative: Lungs are clear. Abdomen is soft there is no obvious tenderness midline is intact. Objective Imaging Abdominal x-ray: My impression: Free air under the diaphragms. Fairly normal gas pattern however. Large amount of stool in the colon along with gas. Labs Result Diagrams: 05/25/19 04:44 05/23/19 09:55 Assessment & Plan Post-op Postoperative Procedures: Procedures Operation Date: 05/22/19 05:00 Actual Procedures Side Surgeon p Exploratory Laparotomy, Resection of terminal ilium and cecum with iliocolic anastomosis Martínez Baptiste MD Postoperative status narrative: Patient is still not opened up the way I would like. He is still having a fair amount of crampy abdominal pain suggesting the possibility of developing an ileus. He does have free air on is examination of his abdomen but given that his temperature and pulse are normal and his abdominal exam is benign I suspect this is just revision residual air from his operation. Still it is concerning. Postoperative plan narrative: Check CBC in a.m. probable discharge in a.m.
[2019-05-26 17:37] VITALS: BP 151/72; PULSE 66; RESP 20; TEMP 37.3; O2SAT 97
[2019-05-26] MEDS: MELATONIN 5 MG 5 EACH PO (21:09)
[2019-05-26 23:35] VITALS: BP 124/70; PULSE 78; RESP 18; TEMP 37; O2SAT 96
[2019-05-27] MEDS: KETOROLAC 10 MG TABLET PO (05:11)
[2019-05-27] MEDS: PANTOPRAZOLE 40 MG TABLET PO (05:11)
[2019-05-27 05:28] LABS: Add Manual Diff / Slide Review NO; Basophils Absolute Auto 0 /uL (0-100); Basophils Percent Auto 0.4 % (0-2); Eosinophils Absolute Auto 200 /uL (0-450); Eosinophils Percent Auto 3.6 % (2-4); Hematocrit 39.9 % (41-53); Hemoglobin 13.7 g/dL (13.5-17.5); Lymphocytes Absolute Auto 2100 /uL (1100-4500); Lymphocytes Percent Auto 30.8 % (25-40); Mean Corpuscular HGB Conc 34.3 % (30-36); Mean Corpuscular Hemoglobin 29.4 PG (26-34); Mean Corpuscular Volume 85.7 fL (80-100); Monocytes Absolute Auto 600 /uL (0-900); Monocytes Percent Auto 8.2 % (3-14); Neutrophils Absolute Auto 3900 /uL (1500-7000); Platelet Count 247 X10^3/uL (150-400); Red Blood Cell Count 4.65 X10^6/uL (4.5-5.9); White Blood Cell Count 6.9 X10^3/uL (4.5-11.0)
[2019-05-27 05:37] LABS: BUN Creatinine Ratio 18.8 (6-22); Blood Urea Nitrogen 15 mg/dL (9-20); Calcium 9.1 mg/dL (8.4-10.2); Carbon Dioxide 32 mmol/L (22-32); Chloride 100 mmol/L (98-107); Estimated Glomerular Filt Rate > 60.0 mL/min (>60); Glucose 91 mg/dL (70-100); HEMOLYSIS < 15 (0-50); Potassium 3.8 mmol/L (3.4-5.1); Sodium 139 mmol/L (137-145)
[2019-05-27 08:00] VITALS: BP 123/64; PULSE 65; RESP 20; TEMP 36.6; O2SAT 97
[2019-05-27] MEDS: GABAPENTIN 300 MG CAPSULE PO (09:10)
[2019-05-27] MEDS: SENNOSIDES 8.6 MG TABLET PO (09:10)
[2019-05-27] MEDS: DEXTROAMPHETAMINE PO (09:11)
[2019-05-27] MEDS: AMPHETAMINE PO (09:11)
--- NOTE | 2019-05-27 09:50 | PM.DS.1 ---
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 He has been vomiting much of the night. No blood. Had a normal bowel movement yesterday. Had symptoms of a bowel obstruction when he was a youngster that resolved spontaneously. Pain is crampy in nature and quite intense to the point of stopping him. Is worse with standing. Discharge Providers Provider Date of admission: 05/22/19 04:20 Discharge Date: 05/27/19 Primary care physician: Marcelo Meyer MD Consults: 05/22/19 05:58 Consult to Physical Therapy Evaluate & Treat Comment: Physician Instructions: Evaluate and Treat 05/22/19 09:40 Consult to Discharge Planning Routine Comment: Discharge provider: Martínez Baptiste MD Summary Hospital Course Discharge Diagnosis: 1. 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 Adult attention deficit disorder Hospital Course: The patient underwent an emergent resection. There was evidence intraoperatively that there was some chronicity to this process. He underwent resection of his cecum and very short ascending colon and an end of terminal ileum to side of colon anastomosis. His postoperative course was fairly smooth. It took an an extra day for him to have return of fairly normal bowel function without severe cramping. He is discharged on pain medication and DVT prophylaxis to follow up in the office. Status at Discharge Cognitive/behavioral status at discharge: oriented Functional status at discharge: independent ambulation Overall status at discharge: patient is progressing back to baseline Exam Vital Signs (past 8 hours): - 05/27/19 08:00 Temperature 98 F Pulse Rate 65 Respiratory Rate 20 Blood Pressure 123/64 Pulse Oximetry 97 Oxygen Delivery Method Room Air Oxygen Flow Rate 0 Objective Labs Result Diagrams: 05/27/19 05:10 05/27/19 05:10 Labs: Laboratory Results - last 24 hr 05/27/19 05/27/19 05:10 05:10 WBC 6.9 RBC 4.65 Hgb 13.7 Hct 39.9 L MCV 85.7 MCH 29.4 MCHC 34.3 RDW 13.0 Plt Count 247 Neut % (Auto) 57.0 Lymph % (Auto) 30.8 [place] % (Auto) 8.2 Eos % (Auto) 3.6 Baso % (Auto) 0.4 Neut # (Auto) 3900 Lymph # (Auto) 2100 [place] # (Auto) 600 Eos # (Auto) 200 Baso # (Auto) 0 Sodium 139 Potassium 3.8 Chloride 100 Carbon Dioxide 32 BUN 15 Creatinine 0.80 Estimated GFR > 60.0 BUN/Creatinine Ratio 18.8 Glucose 91 Calcium 9.1 Discharge Plan Discharge Plan Patient Disposition: Home Discharge comment: I removed the very end of your terminal ileum(about 1 inch of it) your entire cecum/appendix and your ascending colon which was quite short and involved with your volvulus. Discharge orders & Medications Prescriptions: New oxycodone 5 mg tablet See Rx Instructions .ROUTE .COMPLEX PRN (Reason: painful procedure) Qty: 25 RF: 0 ibuprofen 600 mg tablet 600 mg PO Q6H PRN (Reason: pain) Qty: 20 RF: 1 enoxaparin [Lovenox] 40 mg/0.4 mL syringe 40 mg SUBCUT DAILY Qty: 6 RF: 0 Continued dextroamphetamine-amphetamine [Adderall XR] 30 mg capsule,extended release 24hr 30 cap PO QDAY Qty: 30 RF: 0 Follow up/Referrals: Marcelo Meyer MD [Primary Care Provider] - Martínez Baptiste MD [Physician] - 2 Weeks (Call my office and make an appointment to see me in about 10-14 days. Call my office or text me for questions. If I do not respond to a text assume I have not seen it and call my office. If it is after hours an you need to reach the doctor on-call please call the office and listen to the entire message. At the end you will be connected with our page box sealing machine operator who will page the doctor on-call. Try to avoid use of the emergency room unless you have a true emergency as your postoperative care is included in the operative care.) Diet/Activity/Treatments Diet: Diet as Tolerated Activity: Do not lift over 10 lb or strain for the next 5 and half weeks. You may walk. No other exercise. No bicycling. Do not drive or operate machinery until you are pain free off medication Skin/Wound/Dressing Care Report to your healthcare provider any signs of infection, such as:: increased pain, unusual drainage and unusual redness Dressing: No pool or tub for at least 2 weeks. Discharge Data Primary Care Provider: Marcelo Meyer
[2019-05-27] MEDS: ENOXAPARIN 40 MG/0.4 ML SYRINGE SUBCUT (09:58)
--- NOTE | 2019-05-27 10:55 | PC.NURSE ---
prepared for discharge and answered all questions to pts satisfaction- released from hospital a this time
== END 2019-05-27 10:58 | disposition home or self-care (01) | DRG 331 ==
LOC: ED 03:46 → AC 04:21 → ICU 04:43
PROVIDERS: Emergency Medicine; Admitting Provider Specialist; Emergency Provider Nurse Practitioner Family; PCP Family Medicine; Visit Provider Specialist
PROC: 0DTH0ZZ Resection of Cecum, Open Approach (ICD-10-PCS; CPT 49000; principal; 2019-05-22 05:00)
DX: K56.2 Volvulus (principal); R50.82 Postprocedural fever; F90.9 Attention-deficit hyperactivity disorder, unspecified type
CPT/HCPCS: 36415; 44160; 74019; 74177; 80048; 80053; 81001; 83605; 83690; 83735; 85025; 87797; 96360; 97116; 97161; 99253; 99281; 99284; C9113; J0131; J0330; J1100; J1170; J1650; J2250; J2405; J2543; J2704; J3010; J7121; Q9967

== ENCOUNTER → 2020-03-26 09:52 | Outpatient (CLI) | payer OTHER, SELFPAY ==
[2020-03-26 08:57] VITALS: BMI 24.3
[2020-03-26 10:36] LABS: COVID19 -Nasal RAPID Negative (Negative)
== END ==
PROVIDERS: PCP Family Medicine; Visit Provider Physician Assistant
DX: Z03.818 Encounter for observation for suspected exposure to other biological agents ruled out (principal)
CPT/HCPCS: 87635

== ENCOUNTER → 2020-03-27 08:26 | Outpatient (CLI) | payer OTHER, SELFPAY ==
[2020-03-26 08:57] VITALS: BMI 24.3
[2020-03-27 09:54] LABS: COVID19 -Nasal RAPID Negative (Negative)
== END ==
PROVIDERS: PCP Family Medicine; Visit Provider Physician Assistant
DX: Z11.59 Encounter for screening for other viral diseases (principal)
CPT/HCPCS: 87635

== ENCOUNTER → 2020-04-14 | Outpatient (CLI) | payer OTHER, SELFPAY ==
[2020-03-26 08:57] VITALS: BMI 24.3
== END ==
PROVIDERS: PCP Family Medicine; Referring Provider Internal Medicine; Visit Provider Internal Medicine
DX: Z23 Encounter for immunization (principal)
CPT/HCPCS: 90471; 90686

== ENCOUNTER → 2020-06-19 08:50 | Outpatient (CLI) | payer OTHER, SELFPAY ==
[2020-03-26 08:57] VITALS: BMI 24.3
[2020-06-19] MEDS: COVID-19 VACC(MODERNA-1)/PF 100 MCG/0.5 ML VIAL IM (08:58)
== END ==
PROVIDERS: PCP Family Medicine; Visit Provider Internal Medicine
DX: Z23 Encounter for immunization (principal)
CPT/HCPCS: 0011A; 91301

== ENCOUNTER → 2020-07-16 08:27 | Outpatient (CLI) | payer OTHER, SELFPAY ==
[2020-03-26 08:57] VITALS: BMI 24.3
[2020-07-16] MEDS: COVID-19 VACC #2, MRNA(MOD) 100 MCG/0.5 ML VIAL IM (08:31)
== END ==
PROVIDERS: PCP Family Medicine; Visit Provider Internal Medicine
DX: Z23 Encounter for immunization (principal)
CPT/HCPCS: 0012A; 91301

== ENCOUNTER → 2021-03-10 16:24 | Outpatient (CLI) | payer OTHER, SELFPAY ==
[2020-03-26 08:57] VITALS: BMI 24.3
[2021-03-10 17:02] LABS: COVID19 -Nasal RAPID Negative (Negative)
== END ==
PROVIDERS: PCP Family Medicine; Visit Provider Physician Assistant
DX: Z20.822 Contact with and (suspected) exposure to COVID-19 (principal)
CPT/HCPCS: 87635

== ENCOUNTER → 2021-03-12 19:07 | Outpatient (CLI) | payer OTHER, SELFPAY ==
[2020-03-26 08:57] VITALS: BMI 24.3
[2021-03-12 20:33] LABS: COVID-19 CEPHEID PCR (VTM/NP) Negative (Negative)
== END ==
PROVIDERS: PCP Family Medicine; Visit Provider Internal Medicine
DX: Z20.822 Contact with and (suspected) exposure to COVID-19 (principal)
CPT/HCPCS: U0003

== ENCOUNTER → 2021-03-27 | Outpatient (CLI) | payer OTHER, SELFPAY ==
[2020-03-26 08:57] VITALS: BMI 24.3
== END ==
PROVIDERS: PCP Family Medicine; Referring Provider Internal Medicine; Visit Provider Internal Medicine
DX: Z23 Encounter for immunization (principal)
CPT/HCPCS: 90471; 90686

== ENCOUNTER → 2021-05-06 22:55 | Outpatient (CLI) | payer OTHER, SELFPAY ==
[2020-03-26 08:57] VITALS: BMI 24.3
[2021-05-07 00:49] LABS: COVID19 - ADMIT (NP swab/PCR) Negative (Negative)
== END ==
PROVIDERS: PCP Family Medicine; Visit Provider Internal Medicine
DX: Z20.822 Contact with and (suspected) exposure to COVID-19 (principal)
CPT/HCPCS: U0003

== ENCOUNTER → 2021-06-25 13:20 | Outpatient (CLI) | payer OTHER, SELFPAY ==
[2020-03-26 08:57] VITALS: BMI 24.3
[2021-06-25 13:48] LABS: COVID19 - ADMIT (NP swab/PCR) Negative (Negative)
== END ==
PROVIDERS: PCP Family Medicine; Referring Provider Internal Medicine; Visit Provider Internal Medicine
DX: Z20.822 Contact with and (suspected) exposure to COVID-19 (principal)
CPT/HCPCS: U0003

== ENCOUNTER → 2022-05-09 10:19 | Outpatient (CLI) | payer OTHER, SELFPAY ==
[2020-03-26 08:57] VITALS: BMI 24.3
== END ==
PROVIDERS: PCP Family Medicine; Referring Provider Internal Medicine; Visit Provider Internal Medicine
DX: Z23 Encounter for immunization (principal)
CPT/HCPCS: 90471; 90686

== ENCOUNTER → 2023-04-02 14:59 | Outpatient (CLI) | payer OTHER, SELFPAY ==
[2020-03-26 08:57] VITALS: BMI 24.3
== END ==
PROVIDERS: PCP Family Medicine; Referring Provider Family Medicine; Visit Provider Family Medicine
DX: Z23 Encounter for immunization (principal)
CPT/HCPCS: 90471; 90686

== ENCOUNTER → 2024-10-03 10:17 | Outpatient (CLI) | payer OTHER, SELFPAY ==
[2020-03-26 08:57] VITALS: BMI 24.3
[2024-10-03 11:07] LABS: Add Manual Diff / Slide Review NO; Basophils Absolute Auto 0 /uL (0-100); Basophils Percent Auto 0.3 % (0-2); Eosinophils Absolute Auto 100 /uL (0-450); Eosinophils Percent Auto 0.8 % (2-4); Hematocrit 43.3 % (41-53); Hemoglobin 14.9 g/dL (13.5-17.5); Lymphocytes Absolute Auto 2500 /uL (1100-4500); Lymphocytes Percent Auto 30.1 % (25-40); Mean Corpuscular HGB Conc 34.3 % (30-36); Mean Corpuscular Hemoglobin 29.6 PG (26-34); Mean Corpuscular Volume 86.3 fL (80-100); Monocytes Absolute Auto 600 /uL (0-900); Monocytes Percent Auto 6.8 % (3-14); Neutrophils Absolute Auto 5200 /uL (1500-7000); Platelet Count 304 X10^3/uL (150-400); Red Blood Cell Count 5.01 X10^6/uL (4.5-5.9); Red Cell Distribution Width 13.3 % (11.6-14.8); White Blood Cell Count 8.3 X10^3/uL (4.5-11.0)
[2024-10-03 11:34] LABS: Albumin 4.9 g/dL (3.5-5.0); HEMOLYSIS < 15 (0-50)
[2024-10-03 11:36] LABS: Alanine Aminotransferase 29 IU/L (<50); Albumin Globulin Ratio 1.9 (1.0-2.8); Alkaline Phosphatase 62 U/L (38-126); Aspartate Aminotransferase 28 IU/L (17-59); BUN Creatinine Ratio 24.1 (6-22); Bilirubin Total 0.7 mg/dL (0.2-1.3); Blood Urea Nitrogen 20 mg/dL (9-20); Calcium 9.9 mg/dL (8.4-10.2); Chloride 103 mmol/L (98-107); Cholesterol 233 mg/dL (140-199); Estimated Glomerular Filt Rate > 60 mL/min (>60); Globulin 2.6 g/dL (1.7-4.1); Glucose 89 mg/dL (70-100); HDL Cholesterol 51 mg/dL (40-60); LDL Cholesterol Calculated 146 mg/dL (<100); Potassium 4.6 mmol/L (3.4-5.1); Sodium 140 mmol/L (137-145); Total Protein 7.5 g/dL (6.3-8.2); Triglycerides 180 mg/dL (35-150)
[2024-10-03 11:37] LABS: Carbon Dioxide 29 mmol/L (22-32)
[2024-10-03 12:11] LABS: TSH w/ Reflex to FT4 0.72 uIU/mL (0.47-4.68)
== END ==
PROVIDERS: PCP Family Medicine; Referring Provider Family Medicine; Visit Provider Family Medicine
DX: Z13.220 Encounter for screening for lipoid disorders (principal); F98.8 Other specified behavioral and emotional disorders with onset usually occurring in childhood and adolescence
CPT/HCPCS: 36415; 80053; 80061; 84443; 85025